=== PATIENT | male | born 1930 | race Caucasian/White ===

== ENCOUNTER 2016-10-12 19:14 | Emergency (ER) | payer MEDICARE ==
[~2016-10-12] VITALS: Ht 180.3 cm; Wt 73.5 kg
[~2016-10-12 19:14] MED LIST: ASCO-340 PO; BUPR100T5 PO; CALC500T3 PO; CARV3.12 PO; CHOL10002 PO; CLOP75TA2 PO; DULO60CA45 PO; MULT-59 PO; OMEG1CAP55 PO; OMEP40CA PO; OXYC1TAB72 PO; ROSU10TA PO; TELM40TA2 PO; VITA1CAP PO
[2016-10-12 21:29] VITALS: BP 148/75
== END 2016-10-12 21:31 | disposition home or self-care (01) ==
LOC: ER 19:16
DX: S01.81XA Laceration without foreign body of other part of head, initial encounter (principal); S86.912A Strain of unspecified muscle(s) and tendon(s) at lower leg level, left leg, initial encounter; S09.90XA Unspecified injury of head, initial encounter; S40.212A Abrasion of left shoulder, initial encounter; Z79.02 Long term (current) use of antithrombotics/antiplatelets; I10 Essential (primary) hypertension; I25.2 Old myocardial infarction; I50.9 Heart failure, unspecified; J44.9 Chronic obstructive pulmonary disease, unspecified; K21.9 Gastro-esophageal reflux disease without esophagitis; C44.90 Unspecified malignant neoplasm of skin, unspecified; Z98.890 Other specified postprocedural states; W10.9XXA Fall (on) (from) unspecified stairs and steps, initial encounter; Y93.89 Activity, other specified; Y92.252 Music hall as the place of occurrence of the external cause; Y99.8 Other external cause status
CPT/HCPCS: 12011; 70450; 73590; 99284; A4606; Z7610

== ENCOUNTER 2017-04-07 14:38 | Outpatient (CLI) | payer MEDICARE ==
[2017-04-07 16:40] LABS: ALANINE AMINOTRANSFERASE 19 U/L (12-78); ALBUMIN 3.3 g/dL (3.4-5.0); ALKALINE PHOSPHATASE 60 U/L (46-116); ASPARTATE AMINOTRANSFERASE 13 U/L (15-37); BILIRUBIN,TOTAL 0.7 mg/dL (0.2-1.0); CALCIUM, SERUM 8.3 mg/dL (8.5-10.1); CARBON DIOXIDE 29 mmol/L (21-32); CHLORIDE 108 mmol/L (98-107); CREATININE 1.9 mg/dL (0.6-1.3); GLUCOSE 101 mg/dL (74-106); POTASSIUM 4.8 mmol/L (3.5-5.1); SODIUM SERUM 144 mmol/L (136-145); TOTAL PROTEIN, SERUM 6.6 g/dL (6.4-8.2); UREA NITROGEN, BLOOD 21 mg/dL (7-18)
== END 2017-04-07 23:59 | disposition home or self-care (01) ==
LOC: LAB 14:38
PROVIDERS: ATTEND Internal Medicine Interventional Cardiology
DX: I25.10 Atherosclerotic heart disease of native coronary artery without angina pectoris (principal)
CPT/HCPCS: 36415; 80053-TC

== ENCOUNTER 2017-04-21 10:24 | Outpatient (CLI) | payer MEDICARE ==
[2017-04-21 11:35] LABS: CALCIUM, SERUM 8.6 mg/dL (8.5-10.1); CARBON DIOXIDE 31 mmol/L (21-32); CHLORIDE 104 mmol/L (98-107); GLUCOSE 102 mg/dL (74-106); POTASSIUM 4.6 mmol/L (3.5-5.1); SODIUM SERUM 138 mmol/L (136-145); UREA NITROGEN, BLOOD 22 mg/dL (7-18)
== END 2017-04-21 23:59 | disposition home or self-care (01) ==
LOC: CARD 10:24
PROVIDERS: ATTEND Internal Medicine Interventional Cardiology
DX: I25.10 Atherosclerotic heart disease of native coronary artery without angina pectoris (principal); J98.4 Other disorders of lung; R91.1 Solitary pulmonary nodule; I50.9 Heart failure, unspecified
CPT/HCPCS: 36415; 75574; 80048; J3490 ×2; J7040; J7050; Q9967

== ENCOUNTER 2017-10-16 10:04 | Outpatient (CLI) | payer MEDICARE ==
[~2017-10-16 10:04] MED LIST changes: +CLOP75TA15 PO; -CLOP75TA2 PO; +OXYC-121 PO; -OXYC1TAB72 PO
== END 2017-10-16 23:59 | disposition home or self-care (01) ==
LOC: CT 10:04
DX: R91.1 Solitary pulmonary nodule (principal); J43.9 Emphysema, unspecified
CPT/HCPCS: 71250-TC

== ENCOUNTER 2017-10-21 13:04 | Emergency (ER) | payer MEDICARE ==
[~2017-10-21] VITALS: Ht 180.3 cm; Wt 70.3 kg
--- NOTE | 2017-10-21 13:10 | NUR ---
FROM DR AVALOS'S OFFICE: DEHYDRATION, LOW BP, DIZZINESS. RR IS EVEN AND UNLABORED WITH NAD NOTED. PLACED ON THE MONITOR. SKIN IS WARM AND DRY. DR HINDS AT BS FOR EVAL.
[2017-10-21 13:36] LABS: BASOPHILS % (AUTO) 0.6 % (0.0-2.0); EOSINOPHILS # (AUTO) 0.2 /CMM (0.0-0.7); EOSINOPHILS % (AUTO) 3.1 % (0.0-6.0); HEMATOCRIT 38 % (39-51); HEMOGLOBIN 13.4 g/dL (13.5-17.5); LYMPHOCYTES # (AUTO) 0.8 /CMM (0.8-4.8); MEAN CORPUSCULAR HEMOGLOBIN 31 PG (26.0-33.0); MEAN CORPUSCULAR HGB CONC 35 g/dl (31.0-36.0); MEAN CORPUSCULAR VOLUME 88 fL (80-96); MONOCYTES # (AUTO) 0.4 /CMM (0.1-1.30); MONOCYTES % (AUTO) 6.6 % (2.0-12.0); NEUTROPHILS # (AUTO) 4.5 /CMM (1.8-8.9); NEUTROPHILS % (AUTO) 76.7 % (43.0-81.0); PLATELET COUNT (AUTO) 247 /CMM (150-450); RDW COEFFICIENT OF VARIATION 13.3 (11.5-15.0); RED BLOOD CELL COUNT(AUTO) 4.33 MIL/uL (4.5-6.0); WHITE BLOOD COUNT (AUTO) 5.9 K/uL (4.3-11.0)
[2017-10-21 13:44] LABS: CALCIUM, SERUM 8.5 mg/dL (8.5-10.1); CARBON DIOXIDE 28 mmol/L (21-32); CHLORIDE 103 mmol/L (98-107); CREATININE 2.1 mg/dL (0.6-1.3); GLUCOSE 98 mg/dL (74-106); POTASSIUM 4.2 mmol/L (3.5-5.1); SODIUM SERUM 134 mmol/L (136-145); UREA NITROGEN, BLOOD 27 mg/dL (7-18)
[2017-10-21 13:49] LABS: ALANINE AMINOTRANSFERASE 19 U/L (12-78); ALBUMIN 3.2 g/dL (3.4-5.0); ALKALINE PHOSPHATASE 50 U/L (46-116); ASPARTATE AMINOTRANSFERASE 15 U/L (15-37); BILIRUBIN,DIRECT 0.2 mg/dL (0.0-0.2); BILIRUBIN,TOTAL 0.7 mg/dL (0.2-1.0); TOTAL PROTEIN, SERUM 6.5 g/dL (6.4-8.2)
--- NOTE | 2017-10-21 13:50 | NUR ---
URINE OBTAINED SENT TO THE LAB.
[2017-10-21 13:52] LABS: TROPONIN I < 0.017 ng/mL (0.00-0.056)
[2017-10-21] MEDS ORDERED: IV NS 0.9% 1,000 ML IV ONE (14:00)
[2017-10-21 14:01] LABS: APPEARANCE,URINE Clear (CLEAR); BILIRUBIN,URINE Negative (NEGATIVE); BLOOD, URINE Negative Ery/uL (NEGATIVE); COLOR,URINE Yellow (YELLOW); KETONES,URINE Negative (NEGATIVE); LEUKOCYTE ESTERASE ,URINE Negative (NEGATIVE); NITRITE, URINE Negative (NEGATIVE); PROTEIN,URINE Negative (NEGATIVE); UGLUCOSE Negative (NEGATIVE); UROBILINOGEN,URINE 0.2 EU/dL (0.2)
--- NOTE | 2017-10-21 15:55 | NUR ---
IV removed. Catheter intact and site benign. Pressure and 4x4 applied to site. No bleeding noted.Patient discharged to home in stable condition. Written and verbal after care instructions given. Patient verbalizes understanding of instruction.
[2017-10-21 15:59] VITALS: BP 173/79
== END 2017-10-21 16:01 | disposition home or self-care (01) ==
LOC: ER 13:09
DX: R42 Dizziness and giddiness (principal); E86.0 Dehydration; I13.0 Hypertensive heart and chronic kidney disease with heart failure and stage 1 through stage 4 chronic kidney disease, or unspecified chronic kidney disease; I25.2 Old myocardial infarction; I50.9 Heart failure, unspecified; J44.9 Chronic obstructive pulmonary disease, unspecified; K21.9 Gastro-esophageal reflux disease without esophagitis; N18.9 Chronic kidney disease, unspecified; Z98.890 Other specified postprocedural states; Z79.02 Long term (current) use of antithrombotics/antiplatelets; Z85.820 Personal history of malignant melanoma of skin; G89.29 Other chronic pain
CPT/HCPCS: 36415; 70450-TC; 80048-TC; 80076-TC; 81000-TC; 84484-TC; 85025-TC; A4606; J7030; Z7610

== ENCOUNTER 2018-04-06 15:55 | Inpatient (IN) | payer MEDICARE ==
[~2018-04-06] VITALS: Ht 180.3 cm; Wt 68.5 kg
--- NOTE | 2018-04-06 16:10 | NUR ---
AAOX3, CAME TO ER SENT BY PMD FOR FEELING SOB X 4 DAYS, NO APPETITE, FEELING WEAK TODAY. RR IS EVEN AND UNLABORED WITH NAD NOTED. SKIN IS WARM AND DRY. PLACED ON THE MONITOR. WILL CONTINUOUSLY MONITOR THE PATIENT. AWAITING MD FOR EVAL.
[2018-04-06] MEDS ORDERED: ALBUTEROL FS 2.5 MG/3 ML VIAL.NEB ONE (17:24)
[2018-04-06] MEDS ORDERED: IPRATROPIUM NEB FS 0.5 MG/2.5 ML AMPUL.NEB ONE (17:24)
[2018-04-06] MEDS ORDERED: IBUPROFEN 600 MG TABLET PO ONE ×2 (17:25→17:30)
[2018-04-06] MEDS ORDERED: methylPREDNISolone SOD SUCC 125 MG/2ML VIAL ONE (17:25)
[2018-04-06] MEDS ORDERED: ALBUTEROL FS 2.5 MG/3 ML VIAL.NEB CONTNEB ONE (17:30)
[2018-04-06] MEDS ORDERED: IV NS 0.9% 1,000 ML BAG IV ONE ×2 (17:30→19:30)
[2018-04-06] MEDS ORDERED: methylPREDNISolone SOD SUCC 125 MG/2ML VIAL IV ONE (17:30)
[2018-04-06] MEDS ORDERED: CEFTRIAXONE 1GM BAG (ER ONLY) 50 ML IV ONE (17:30)
[2018-04-06] MEDS ORDERED: IPRATROPIUM NEB FS 0.5 MG/2.5 ML AMPUL.NEB NEB ONE (17:30)
[2018-04-06 17:32] LABS: BASOPHILS % (AUTO) 0.1 % (0.0-2.0); HEMATOCRIT 43 % (39-51); LYMPHOCYTES # (AUTO) 0.8 /CMM (0.8-4.8); MONOCYTES # (AUTO) 0.8 /CMM (0.1-1.30)
[2018-04-06 17:35] LABS: EOSINOPHILS % (AUTO) 2.2 % (0.0-6.0); HEMOGLOBIN 14.2 g/dL (13.5-17.5); MEAN CORPUSCULAR HEMOGLOBIN 30 PG (26.0-33.0); MEAN CORPUSCULAR HGB CONC 33 g/dl (31.0-36.0); MEAN CORPUSCULAR VOLUME 90 fL (80-96); MONOCYTES % (AUTO) 8.9 % (2.0-12.0); NEUTROPHILS # (AUTO) 6.9 /CMM (1.8-8.9); NEUTROPHILS % (AUTO) 79.8 % (43.0-81.0); PLATELET COUNT (AUTO) 288 /CMM (150-450); RDW COEFFICIENT OF VARIATION 13.1 (11.5-15.0); RED BLOOD CELL COUNT(AUTO) 4.76 MIL/uL (4.5-6.0); WHITE BLOOD COUNT (AUTO) 8.7 K/uL (4.3-11.0)
[2018-04-06 17:45] LABS: CALCIUM, SERUM 8.6 mg/dL (8.5-10.1); CARBON DIOXIDE 28 mmol/L (21-32); CHLORIDE 103 mmol/L (98-107); GLUCOSE 113 mg/dL (74-106); POTASSIUM 3.7 mmol/L (3.5-5.1); SODIUM SERUM 136 mmol/L (136-145); UREA NITROGEN, BLOOD 20 mg/dL (7-18)
[2018-04-06 17:51] LABS: INR 0.96 (0.85-1.15); TROPONIN I < 0.017 ng/mL (0.00-0.056)
[2018-04-06 17:55] LABS: ALANINE AMINOTRANSFERASE 17 U/L (12-78); ALBUMIN 3.4 g/dL (3.4-5.0); ALKALINE PHOSPHATASE 71 U/L (46-116); ASPARTATE AMINOTRANSFERASE 12 U/L (15-37); BILIRUBIN,DIRECT 0.1 mg/dL (0.0-0.2); BILIRUBIN,TOTAL 0.6 mg/dL (0.2-1.0); TOTAL PROTEIN, SERUM 7.1 g/dL (6.4-8.2)
--- NOTE | 2018-04-06 19:00 | NUR ---
REPORT GIVEN TO MARK NUNEZ FOR DIANNA.
--- NOTE | 2018-04-06 19:26 | NUR ---
PAGED EPIC FOR PANEL
[2018-04-06] MEDS ORDERED: AZITHROMYCIN 500 MG in IV D5W 250 ML IV ONE (19:30)
[2018-04-06] MEDS ORDERED: DULO20CA PO (19:33)
[2018-04-06] MEDS ORDERED: SIMV40TA5 PO (19:33)
[2018-04-06] MEDS ORDERED: LEVO25TA9 PO (19:33)
[2018-04-06] MEDS ORDERED: OXYC-128 PO (19:33)
[2018-04-06] MEDS ORDERED: BUPR300T52 PO (19:33)
[2018-04-06] MEDS ORDERED: DONE5TAB34 PO (19:33)
[2018-04-06] MEDS ORDERED: LEVO137T24 PO (20:10)
[2018-04-06] MEDS ORDERED: MAGNESIUM HYDROXIDE 30 ML UDC PO PRN (20:30)
[2018-04-06] MEDS ORDERED: ACETAMINOPHEN 325 MG TABLET PO PRN (20:30)
[2018-04-06] MEDS ORDERED: Z GUARD REMEDY 2 OZ OINT TP PRN (20:30)
[2018-04-06] MEDS ORDERED: ONDANSETRON HCL/PF 4 MG/2 ML VIAL IVP PRN (20:30)
--- NOTE | 2018-04-06 20:55 | NUR ---
RN OPENING NOTES: RECEIVED PT FROM ED WITH 2LS OF NS BEING INFUSED. AT BEDSIDE. PT ON ROOM AIR AND TOLERATING WELL. AWAITING FOR ADMITTING ORDERS. PT HAS IV ON R AC #18G AND IS PATENT AND INTACT. CALL LIGHT WITHIN PT'S REACH. BED KEPT IN LOW, LOCKED POSITION, AND SIDE RAILS X 2UP. WILL CONTINUE TO MONITOR PT.
[2018-04-06 21:00] VITALS: BP 147/81
--- NOTE | 2018-04-06 21:15 | NUR ---
RN NOTES: SPOKE WITH DR. DIALLO. GOT ORDER FOR CARDIAC DIET.
--- NOTE | 2018-04-06 21:25 | NUR ---
RN NOTES: PAGED EPIC. AWAITING FOR DIET ORDER.
--- NOTE | 2018-04-06 21:30 | NUR ---
RN NOTES: DR. JAMES AT BEDSIDE.
[2018-04-06] MEDS: SIMVASTATIN 40 MG TABLET PO SCH (22:40)
[2018-04-06] MEDS: IV NS 0.9% 1,000 ML IV PRN (22:52)
[2018-04-06] MEDS: ALBUTEROL FS 2.5 MG/3 ML VIAL.NEB NEB SCH (23:17)
[2018-04-06] MEDS: ACETYLCYSTEINE 20% SOLN 800 MG/4 ML VIAL NEB SCH (23:17)
[2018-04-06] MEDS: IPRATROPIUM NEB FS 0.5 MG/2.5 ML AMPUL.NEB NEB SCH (23:17)
[2018-04-06] MEDS: ZOLPIDEM TARTRATE 5 MG TABLET PO PRN (23:31)
[2018-04-07] VITALS: BP 133/74
[2018-04-07 03:11] LABS: APPEARANCE,URINE CLEAR (CLEAR); BILIRUBIN,URINE NEGATIVE (NEGATIVE); BLOOD, URINE NEGATIVE Ery/uL (NEGATIVE); COLOR,URINE YELLOW (YELLOW); KETONES,URINE NEGATIVE (NEGATIVE); LEUKOCYTE ESTERASE ,URINE NEGATIVE (NEGATIVE); NITRITE, URINE NEGATIVE (NEGATIVE); PROTEIN,URINE NEGATIVE (NEGATIVE); UGLUCOSE NEGATIVE (NEGATIVE); UROBILINOGEN,URINE 0.2 EU/dL (0.2)
[2018-04-07] MEDS: ALBUTEROL FS 2.5 MG/3 ML VIAL.NEB NEB SCH ×6 (03:25→23:12)
[2018-04-07] MEDS: IPRATROPIUM NEB FS 0.5 MG/2.5 ML AMPUL.NEB NEB SCH ×6 (03:25→23:12)
[2018-04-07 04:00] VITALS: BP 118/60
[2018-04-07 06:27] LABS: BASOPHILS % (AUTO) 0.1 % (0.0-2.0); HEMATOCRIT 34 % (39-51); HEMOGLOBIN 11.3 g/dL (13.5-17.5); LYMPHOCYTES # (AUTO) 0.3 /CMM (0.8-4.8); LYMPHOCYTES % (AUTO) 5.8 % (20.0-44.0); MEAN CORPUSCULAR HEMOGLOBIN 30 PG (26.0-33.0); MEAN CORPUSCULAR HGB CONC 33 g/dl (31.0-36.0); MEAN CORPUSCULAR VOLUME 91 fL (80-96); MONOCYTES # (AUTO) 0.1 /CMM (0.1-1.30); NEUTROPHILS # (AUTO) 4.8 /CMM (1.8-8.9); NEUTROPHILS % (AUTO) 93.1 % (43.0-81.0); PLATELET COUNT (AUTO) 197 /CMM (150-450); RDW COEFFICIENT OF VARIATION 13.6 (11.5-15.0); RED BLOOD CELL COUNT(AUTO) 3.72 MIL/uL (4.5-6.0); WHITE BLOOD COUNT (AUTO) 5.2 K/uL (4.3-11.0)
--- NOTE | 2018-04-07 06:43 | NUR ---
FOREST ECONOMIST CLOSING NOTES: ALL NEEDS WERE ATTENDED AND ANTICIPATED FOR. PT ON ROOM AIR AND TOLERATING WELL. PT AWAKE AND AWAITING FOR BREAKFAST AND WATCHING TELEVISION. PT HAS IV ON R AC AND IS BEING INFUSED WITH IV NS AT 60CC/HR. PT ON TELE BOX AND READING SHOWS SR 82 WITH FIRST DEGREE AV BLOCK AND BBB. CALL LIGHT WITHIN PT'S REACH. BED KEPT IN LOW, LOCKED POSITION, AND SIDE RAILS X2 UP. WILL CONTINUE TO MONITOR PT.
[2018-04-07 06:45] LABS: CALCIUM, SERUM 7.4 mg/dL (8.5-10.1); CARBON DIOXIDE 20 mmol/L (21-32); CHLORIDE 106 mmol/L (98-107); CREATININE 1.8 mg/dL (0.6-1.3); GLUCOSE 245 mg/dL (74-106); MAGNESIUM 1.7 mg/dL (1.8-2.4); PHOSPHORUS 2.8 mg/dL (2.5-4.9); POTASSIUM 4.3 mmol/L (3.5-5.1); SODIUM SERUM 137 mmol/L (136-145); UREA NITROGEN, BLOOD 19 mg/dL (7-18)
[2018-04-07 07:14] LABS: CHOLESTEROL 97 mg/dL (<200); HDL CHOLESTEROL 40 mg/dL (40-60); LDL 62 mg/dL (0-99); TRIGLYCERIDES 30 mg/dL (30-150)
[2018-04-07] MEDS: ACETYLCYSTEINE 20% SOLN 800 MG/4 ML VIAL NEB SCH ×3 (07:21→23:12)
[2018-04-07] MEDS ORDERED: LEVOTHYROXINE SODIUM 137 MCG TABLET PO SCH (07:30)
[2018-04-07 08:00] VITALS: BP 136/76
[2018-04-07] MEDS ORDERED: methylPREDNISolone SOD SUCC 125 MG/2ML VIAL IV SCH (09:00)
[2018-04-07] MEDS ORDERED: GUAIFENESIN 300 MG/15 ML UDC PO PRN (09:30)
--- NOTE | 2018-04-07 09:41 | NUR ---
medicated for cough with robitussin.
[2018-04-07] MEDS: methylPREDNISolone SOD SUCC 125 MG/2ML VIAL IV SCH ×3 (10:01→17:59)
[2018-04-07] MEDS: DONEPEZIL 5 MG TABLET PO SCH (10:01)
[2018-04-07] MEDS: CLOPIDOGREL BISULFATE 75 MG TABLET PO SCH (10:01)
[2018-04-07] MEDS: BUPROPION XL 150 MG TAB.ER.24 PO SCH (10:02)
[2018-04-07] MEDS: DULOXETINE HCL 20 MG CAPSULE.DR PO SCH (10:02)
[2018-04-07] MEDS: CARVEDILOL 3.125 MG TABLET PO SCH ×2 (10:03→18:00)
[2018-04-07] MEDS: LEVOTHYROXINE SODIUM 25 MCG TABLET PO SCH (10:06)
[2018-04-07] MEDS: PANTOPRAZOLE 40 MG TABLET.DR PO SCH (10:07)
[2018-04-07] MEDS ORDERED: Magnesium 1GM/D5W 100ML PREMIX 100 ML IV SCH (10:30)
--- NOTE | 2018-04-07 12:00 | NUR ---
mg replacement iv.
[2018-04-07] MEDS: LOSARTAN POTASSIUM 50 MG TABLET PO SCH (12:52)
--- NOTE | 2018-04-07 14:30 | NUR ---
here all day,reviewed med list with her.bottle of pt's bp med taken to pharm.
[2018-04-07 16:00] VITALS: BP 140/76
--- NOTE | 2018-04-07 16:39 | NUR ---
reports sweaty and flushed after last steroid iv med and breathing tx.bgl checked 155.dr. aguilar notified and agreeable to cont. solu-medrol and breathing txs if no rash and vs stable..
--- NOTE | 2018-04-07 17:00 | NUR ---
bp 143/71,hr 68,98.3,16,pox 93%.pt. without c/o pain.
[2018-04-07] MEDS: MAG HYDROX/AL HYDROX/SIMETH 30 ML UDC PO PRN (18:15)
[2018-04-07] MEDS: oxyCODONE/APAP (5/325 MG) 1 UDTAB TABLET PO PRN (18:17)
--- NOTE | 2018-04-07 18:17 | NUR ---
medicated with maalox for stomach ache and percocette for foot pain.
--- NOTE | 2018-04-07 18:30 | NUR ---
iv infiltrated and removed.
[2018-04-07 20:00] VITALS: BP 146/80
[2018-04-07] MEDS ORDERED: AZITHROMYCIN 250 MG TABLET PO ONE (20:30)
[2018-04-07] MEDS: SIMVASTATIN 40 MG TABLET PO SCH (21:49)
[2018-04-08] VITALS: BP 179/97
--- NOTE | 2018-04-08 00:59 | NUR ---
ETHYL BLENDER NOTES BP 195/95. CALLED DR DIALLO. MADE AWARE RE PT'S CONDITION. PT ALSO REQUESTING FOR ARTIFICIAL TEARS FOR DRY EYES. WITH NEW ORDERS MADE. ORDERS NOTED AND CARRIED OUT. WILL CONTINUE TO MONITOR.
[2018-04-08] MEDS ORDERED: hydrALAZINE HCL 25 MG TABLET PO ONE (01:00)
[2018-04-08] MEDS ORDERED: POLYVINYL ALCOHOL 15 ML BOTTLE EACHEYE PRN (01:00)
[2018-04-08] MEDS: HYDROCODONE/APAP 5/325MG 1 EACH TABLET PO PRN ×2 (01:10→20:35)
[2018-04-08] MEDS: ZOLPIDEM TARTRATE 5 MG TABLET PO PRN (01:17)
[2018-04-08 02:05] VITALS: BP 138/64
[2018-04-08] MEDS: ALBUTEROL FS 2.5 MG/3 ML VIAL.NEB NEB SCH ×6 (02:57→23:30)
[2018-04-08] MEDS: IPRATROPIUM NEB FS 0.5 MG/2.5 ML AMPUL.NEB NEB SCH ×6 (02:57→23:30)
[2018-04-08 04:00] VITALS: BP 132/72
[2018-04-08] MEDS: MAG HYDROX/AL HYDROX/SIMETH 30 ML UDC PO PRN (05:19)
--- NOTE | 2018-04-08 06:22 | NUR ---
BOGGER OPERATOR NOTES AWAKE & RESPONSIVE. NOT IN ANY DISTRESS. NO SOB NOTED. DENIES ANY PAIN OR DISCOMFORT AT THIS TIME. ON TELE SR @ 68. MONITORED ACCORDINGLY. CALL LIGHT WITHIN REACH. BED IN LOWEST POSITION. SR UP X 2 FOR SAFETY. WILL ENDORSE TO NEXT SHIFT.
[2018-04-08 06:45] LABS: CARBON DIOXIDE 22 mmol/L (21-32); CHLORIDE 106 mmol/L (98-107); CREATININE 1.7 mg/dL (0.6-1.3); GLUCOSE 119 mg/dL (74-106); MAGNESIUM 1.9 mg/dL (1.8-2.4); PHOSPHORUS 2.8 mg/dL (2.5-4.9); POTASSIUM 4.7 mmol/L (3.5-5.1); SODIUM SERUM 137 mmol/L (136-145); UREA NITROGEN, BLOOD 29 mg/dL (7-18)
--- NOTE | 2018-04-08 07:25 | NUR ---
WATER JET OPERATOR OPENING NOTES RECEIVED PATIENT IN NO APPARENT DISTRESS. BEDSIDE RAILS ARE UPX2. BED IS LOCKED AND LOWERED. CALL LIGHT IS WITHIN REACH. PATIENT DOES NOT HAVE IV LINE. WILL START NEW IV. WILL CONTINUE TO MONITOR PATIENT.
[2018-04-08] MEDS: LEVOTHYROXINE SODIUM 25 MCG TABLET PO SCH (07:42)
[2018-04-08] MEDS: PANTOPRAZOLE 40 MG TABLET.DR PO SCH (07:42)
[2018-04-08] MEDS: ACETYLCYSTEINE 20% SOLN 800 MG/4 ML VIAL NEB SCH ×3 (07:55→23:30)
[2018-04-08 08:00] VITALS: BP 152/81
[2018-04-08 08:15] LABS: HEMATOCRIT 33 % (39-51); HEMOGLOBIN 10.9 g/dL (13.5-17.5); LYMPHOCYTES # (AUTO) 0.6 /CMM (0.8-4.8); LYMPHOCYTES % (AUTO) 4.5 % (20.0-44.0); MEAN CORPUSCULAR HEMOGLOBIN 30 PG (26.0-33.0); MEAN CORPUSCULAR HGB CONC 33 g/dl (31.0-36.0); MEAN CORPUSCULAR VOLUME 91 fL (80-96); MONOCYTES # (AUTO) 0.5 /CMM (0.1-1.30); MONOCYTES % (AUTO) 4.2 % (2.0-12.0); NEUTROPHILS # (AUTO) 11.9 /CMM (1.8-8.9); NEUTROPHILS % (AUTO) 91.3 % (43.0-81.0); PLATELET COUNT (AUTO) 228 /CMM (150-450); RDW COEFFICIENT OF VARIATION 13.8 (11.5-15.0); RED BLOOD CELL COUNT(AUTO) 3.58 MIL/uL (4.5-6.0)
[2018-04-08] MEDS: DULOXETINE HCL 20 MG CAPSULE.DR PO SCH (08:35)
[2018-04-08] MEDS: DONEPEZIL 5 MG TABLET PO SCH (08:36)
[2018-04-08] MEDS: BUPROPION XL 150 MG TAB.ER.24 PO SCH (08:36)
[2018-04-08] MEDS: CARVEDILOL 3.125 MG TABLET PO SCH ×2 (08:36→17:22)
[2018-04-08] MEDS: CLOPIDOGREL BISULFATE 75 MG TABLET PO SCH (08:36)
[2018-04-08] MEDS: LOSARTAN POTASSIUM 50 MG TABLET PO SCH (08:37)
[2018-04-08] MEDS: methylPREDNISolone SOD SUCC 125 MG/2ML VIAL IV SCH ×3 (08:55→17:30)
--- NOTE | 2018-04-08 09:31 | NUR ---
STARTED IV ON LEFT FOREARM GAUGE 22.
[2018-04-08] MEDS: IV NS 0.9% 1,000 ML IV PRN (09:57)
[2018-04-08 16:00] VITALS: BP 154/83
--- NOTE | 2018-04-08 18:20 | NUR ---
MS RN CLOSING NOTES PATIENT IS IN STABLE CONDITION. IN NO APPARENT DISTRESS. BEDSIDE RAILS ARE UPX2. BED IS LOCKED AND LOWERED. CALL LIGHT IS WITHIN REACH. IV LINE IS INTACT AND PATENT. WILL ENDORSE CARE TO SAPPHIRE STYLUS GRINDER NURSE FOR DIANNA.
[2018-04-08 20:00] VITALS: BP 156/85
[2018-04-08] MEDS: SIMVASTATIN 40 MG TABLET PO SCH (22:27)
[2018-04-08] MEDS: oxyCODONE/APAP (5/325 MG) 1 UDTAB TABLET PO PRN (23:11)
[2018-04-09] MEDS: IPRATROPIUM NEB FS 0.5 MG/2.5 ML AMPUL.NEB NEB SCH ×4 (03:49→15:27)
[2018-04-09] MEDS: ALBUTEROL FS 2.5 MG/3 ML VIAL.NEB NEB SCH ×4 (03:49→15:27)
[2018-04-09] MEDS: IV NS 0.9% 1,000 ML IV PRN (04:30)
--- NOTE | 2018-04-09 06:30 | NUR ---
MS RN NOTES AWAKE & RESPONSIVE. NOT IN ANY DISTRESS. NO SOB NOTED. DENIES ANY PAIN OR DISCOMFORT AT THIS TIME. WITH IVF INFUSING WELL. MONITORED ACCORDINGLY. CALL LIGHT WITHIN REACH. BED IN LOWEST POSITION. SR UP X 2 FOR SAFETY. WILL ENDORSE TO NEXT SHIFT.
[2018-04-09] MEDS: ACETYLCYSTEINE 20% SOLN 800 MG/4 ML VIAL NEB SCH ×2 (07:32→15:28)
--- NOTE | 2018-04-09 07:56 | NUR ---
RN OPENING NOTES RECEIVED PT AWAKE ALERT AND VERBALLY RESPONSIVE, DENIES ANY PAIN OR DISCOMFORT AT THIS TIME. IV ACCESS TO LFA PATENT AND INTACT NO REDNESS OR INFILTRATION NOTED. SAFETY MEASURES IN PLACE, CALL LIGHT WITHIN EASY REACH, WILL CONTINUE TO MONITOR
[2018-04-09 08:00] VITALS: BP 175/90
[2018-04-09] MEDS: methylPREDNISolone SOD SUCC 125 MG/2ML VIAL IV SCH ×2 (08:09→12:50)
[2018-04-09] MEDS: DONEPEZIL 5 MG TABLET PO SCH (08:09)
[2018-04-09] MEDS: LOSARTAN POTASSIUM 50 MG TABLET PO SCH (08:09)
[2018-04-09] MEDS: LEVOTHYROXINE SODIUM 25 MCG TABLET PO SCH (08:09)
[2018-04-09] MEDS: BUPROPION XL 150 MG TAB.ER.24 PO SCH (08:09)
[2018-04-09] MEDS: PANTOPRAZOLE 40 MG TABLET.DR PO SCH (08:09)
[2018-04-09] MEDS: CLOPIDOGREL BISULFATE 75 MG TABLET PO SCH (08:09)
[2018-04-09] MEDS: DULOXETINE HCL 20 MG CAPSULE.DR PO SCH (08:09)
[2018-04-09] MEDS: CARVEDILOL 3.125 MG TABLET PO SCH (08:10)
[2018-04-09 09:10] VITALS: BP 162/94
[2018-04-09 10:45] VITALS: BP 161/95
[2018-04-09 12:50] VITALS: BP 130/74
[2018-04-09] MEDS ORDERED: PRED5TAB48 PO (14:12)
[2018-04-09] MEDS ORDERED: PRED20TA PO (14:12)
[2018-04-09] MEDS ORDERED: CARV6.25 PO (14:12)
[2018-04-09] MEDS ORDERED: PRED10TA23 PO (14:12)
[2018-04-09] MEDS ORDERED: FLUT1DIS3 INH (14:18)
--- NOTE | 2018-04-09 16:01 | NUR ---
RN CLOSING/DISCHARGE NOTES PT AWAKE ALERT AND VERBALLY RESPONSIVE, DENIES ANY PAIN OR DISCOMFORT AT THIS TIME, ABLE TO MAKE NEEDS KNOWN. IV ACCESS TO LFA AND ID BAND REMOVED WITH NO ASE NOTED.PATIENT WITH DISCHARGE ORDERS, ALL DISCHARGE INSTRUCTIONS REVIEWED WITH PATIENT AND WITH NOTED VERBAL UNDERSTANDING NOTED. MEDICATIONS RETURNED TO PT, ALL BELONGINGS ACCOUNTED FOR. HOME HEALTH SET UP PER , DISCHARGED IN STABLE CONDITION, ASSISTED TO LOBBY BY RN
[2018-04-09] MEDS ORDERED: CARVEDILOL 6.25 MG TABLET PO SCH (17:00)
== END 2018-04-09 15:49 | disposition home health service (06) | DRG 193 ==
LOC: ER 15:56 → MED 20:25 → TELE 22:06 → MED 04-08 17:21
PROVIDERS: ADMIT Family Medicine; ATTEND Family Medicine
DX: J15.9 Unspecified bacterial pneumonia (principal); N17.0 Acute kidney failure with tubular necrosis; J44.1 Chronic obstructive pulmonary disease with (acute) exacerbation; J44.0 Chronic obstructive pulmonary disease with (acute) lower respiratory infection; K22.5 Diverticulum of esophagus, acquired; I11.0 Hypertensive heart disease with heart failure; I50.9 Heart failure, unspecified; I25.2 Old myocardial infarction; I25.10 Atherosclerotic heart disease of native coronary artery without angina pectoris; K21.9 Gastro-esophageal reflux disease without esophagitis; Z85.820 Personal history of malignant melanoma of skin; Z95.5 Presence of coronary angioplasty implant and graft
CPT/HCPCS: 36415; 71045-TC; 80048-TC; 80061-TC; 80076-TC; 81000-TC; 82962-TC; 83605-TC; 83735-TC; 84100-TC; 84484-TC; 85025-TC; 85730-TC; 87040-TC; 87081-TC; 87086-TC; 92526; 92611-TC; A4606; J0456; J0696; J2930; J3475; J7030; J7040; J7060; Z7610

== ENCOUNTER 2018-09-20 18:52 | Inpatient (IN) | payer MEDICARE ==
[~2018-09-20] VITALS: Ht 177.8 cm; Wt 71.2 kg
[~2018-09-20 18:52] MED LIST changes: -ASCO-340 PO; -BUPR100T5 PO; +BUPR300T52 PO; -CALC500T3 PO; -CARV3.12 PO; +CARV6.25 PO; -CHOL10002 PO; +DONE5TAB34 PO; +DULO20CA PO; -DULO60CA45 PO; +FLUT1DIS3 INH; +LEVO25TA9 PO; -MULT-59 PO; -OMEG1CAP55 PO; -OXYC-121 PO; +OXYC-128 PO; +PRED10TA23 PO; +PRED20TA PO; +PRED5TAB48 PO; -ROSU10TA PO; +SIMV40TA5 PO; -VITA1CAP PO
--- NOTE | 2018-09-20 19:21 | NUR ---
patient presented to the ER c/o sob, on 2lpm via NC, denies any pain at this time. kept comfortable, will continue to monitor accordingly.
[2018-09-20 19:30] LABS: BASOPHILS % (AUTO) 0.1 % (0.0-2.0); HEMATOCRIT 32 % (39-51); HEMOGLOBIN 10.7 g/dL (13.5-17.5); LYMPHOCYTES # (AUTO) 0.7 /CMM (0.8-4.8); LYMPHOCYTES % (AUTO) 6.5 % (20.0-44.0); MEAN CORPUSCULAR HGB CONC 34 g/dl (31.0-36.0); MEAN CORPUSCULAR VOLUME 86 fL (80-96); MONOCYTES # (AUTO) 0.7 /CMM (0.1-1.30); MONOCYTES % (AUTO) 6.5 % (2.0-12.0); NEUTROPHILS % (AUTO) 85.9 % (43.0-81.0); PLATELET COUNT (AUTO) 195 /CMM (150-450); RED BLOOD CELL COUNT(AUTO) 3.66 MIL/uL (4.5-6.0); WHITE BLOOD COUNT (AUTO) 10.5 K/uL (4.3-11.0)
[2018-09-20] MEDS ORDERED: IV NS 0.9% 1,000 ML BAG IV ONE (19:30)
[2018-09-20 19:39] LABS: CALCIUM, SERUM 8.8 mg/dL (8.5-10.1); CARBON DIOXIDE 25 mmol/L (21-32); CHLORIDE 105 mmol/L (98-107); CREATININE 2.5 mg/dL (0.6-1.3); GLUCOSE 104 mg/dL (74-106); POTASSIUM 4.3 mmol/L (3.5-5.1); SODIUM SERUM 138 mmol/L (136-145); UREA NITROGEN, BLOOD 42 mg/dL (7-18)
[2018-09-20 19:45] LABS: ALANINE AMINOTRANSFERASE 14 U/L (12-78); ALBUMIN 2.9 g/dL (3.4-5.0); ALKALINE PHOSPHATASE 60 U/L (46-116); ASPARTATE AMINOTRANSFERASE 12 U/L (15-37); BILIRUBIN,DIRECT 0.3 mg/dL (0.0-0.2); BILIRUBIN,TOTAL 1.1 mg/dL (0.2-1.0); TOTAL PROTEIN, SERUM 6.5 g/dL (6.4-8.2)
--- NOTE | 2018-09-20 19:57 | NUR ---
PMD PAGED DR. GRIFFIN [phone]
--- NOTE | 2018-09-20 20:43 | NUR ---
CALLED FOR REPORT. WAS TOLD TO CALL BACK IN 15.
[2018-09-20] MEDS ORDERED: LEVOFLOXACIN 750 MG /D5W 150ML 150 ML IV ONE ×2 (20:52→21:00)
[2018-09-20] MEDS ORDERED: ACETAMINOPHEN 325 MG TABLET PO PRN (21:00)
[2018-09-20] MEDS ORDERED: HYDROCODONE/APAP 5/325MG 1 EACH TABLET PO PRN (21:00)
[2018-09-20] MEDS ORDERED: HYDROMORPHONE INJ 2 MG/ML DISP.SYRIN IV PRN (21:00)
[2018-09-20] MEDS ORDERED: MAGNESIUM HYDROXIDE 30 ML UDC PO PRN (21:00)
[2018-09-20] MEDS ORDERED: MAG HYDROX/AL HYDROX/SIMETH 30 ML UDC PO PRN (21:00)
[2018-09-20] MEDS ORDERED: ONDANSETRON HCL/PF 4 MG/2 ML VIAL IVP PRN (21:00)
[2018-09-20] MEDS ORDERED: Z GUARD REMEDY 2 OZ OINT TP PRN (21:00)
[2018-09-20] MEDS ORDERED: LOPERAMIDE HCL (2 MG CAP) 2 MG CAPSULE PO PRN (21:00)
--- NOTE | 2018-09-20 21:01 | NUR ---
REPORT GIVEN TO AISLINN FLORES.
--- NOTE | 2018-09-20 21:05 | NUR ---
AISLINN AWARE OF INFUSING ATBX.
--- NOTE | 2018-09-20 21:10 | NUR ---
RN NOTE RECEIVED PATIENT FROM ER, ABLE TO AMBULATE FROM GURNEY TO BED ON HIS OWN, STEADY GAIT, ALERT/ORIENTED X 4, IS BY BEDSIDE, ON 2 L/MIN VIA NASAL CANULA, VITAL SIGNS TAKEN, NO RESPIRATORY DISTRESS NOTED, NO PAIN OR DISCOMFORT NOTED, RECEIVED PATIENT WITH CONTINUOUS ANTIBIOTIC LEVOQUIN, DX: RIGHT LUNG PNEUMONIA/ACUTE ON CHRONIC RENAL FAILURE, LEFT AC 18 GAUGE, IV SITE IS INTACT, NO S/S OF INFECTION/INFILTRATION NOTED, ALL SAFETY MEASURES TAKEN
[2018-09-20] MEDS ORDERED: CEFTRIAXONE 1 G VIAL ONE (21:41)
[2018-09-20] MEDS: CEFTRIAXONE 1 G in IV D5W 50 ML IV SCH (21:51)
[2018-09-20] MEDS: IV NS 0.9% 1,000 ML IV PRN (21:51)
[2018-09-20] MEDS: SIMVASTATIN 40 MG TABLET PO SCH (21:53)
[2018-09-20] MEDS ORDERED: AZITHROMYCIN 500 MG VIAL ONE (22:00)
[2018-09-20] MEDS: AZITHROMYCIN 500 MG in IV D5W 250 ML IV SCH (23:06)
--- NOTE | 2018-09-21 02:52 | NUR ---
RN NOTE PER PATIENT WAS ON GABAPENTIN 300MG THREE TIMES DAILY PO, NOTIFIED ANTHONY DOMINGUEZ, PER BONILLA DOMINGUEZ CONTINUE THE SAME ORDER OF GABAPENTIN 300 MG THREE TIMES DAILY PO
[2018-09-21 04:00] VITALS: BP 111/61
[2018-09-21 06:11] LABS: BASOPHILS % (AUTO) 0.2 % (0.0-2.0); EOSINOPHILS % (AUTO) 1.7 % (0.0-6.0); HEMATOCRIT 27 % (39-51); HEMOGLOBIN 9.3 g/dL (13.5-17.5); LYMPHOCYTES # (AUTO) 0.7 /CMM (0.8-4.8); LYMPHOCYTES % (AUTO) 7.1 % (20.0-44.0); MEAN CORPUSCULAR HGB CONC 35 g/dl (31.0-36.0); MEAN CORPUSCULAR VOLUME 85 fL (80-96); MONOCYTES # (AUTO) 0.7 /CMM (0.1-1.30); MONOCYTES % (AUTO) 7.6 % (2.0-12.0); NEUTROPHILS # (AUTO) 7.9 /CMM (1.8-8.9); NEUTROPHILS % (AUTO) 83.4 % (43.0-81.0); PLATELET COUNT (AUTO) 164 /CMM (150-450); RED BLOOD CELL COUNT(AUTO) 3.16 MIL/uL (4.5-6.0); WHITE BLOOD COUNT (AUTO) 9.4 K/uL (4.3-11.0)
[2018-09-21 06:35] LABS: ALANINE AMINOTRANSFERASE 12 U/L (12-78); ALBUMIN 2.3 g/dL (3.4-5.0); ALKALINE PHOSPHATASE 44 U/L (46-116); ASPARTATE AMINOTRANSFERASE 8 U/L (15-37); BILIRUBIN,TOTAL 0.7 mg/dL (0.2-1.0); CALCIUM, SERUM 7.9 mg/dL (8.5-10.1); CARBON DIOXIDE 25 mmol/L (21-32); CHLORIDE 105 mmol/L (98-107); CREATININE 2.1 mg/dL (0.6-1.3); GLUCOSE 91 mg/dL (74-106); MAGNESIUM 1.9 mg/dL (1.8-2.4); PHOSPHORUS 2.8 mg/dL (2.5-4.9); POTASSIUM 4.2 mmol/L (3.5-5.1); SODIUM SERUM 138 mmol/L (136-145); TOTAL PROTEIN, SERUM 5.2 g/dL (6.4-8.2); UREA NITROGEN, BLOOD 33 mg/dL (7-18)
[2018-09-21 06:46] LABS: CHOLESTEROL 85 mg/dL (<200); HDL CHOLESTEROL 35 mg/dL (40-60); LDL 43 mg/dL (0-99); TRIGLYCERIDES 75 mg/dL (30-150)
--- NOTE | 2018-09-21 06:49 | NUR ---
RN NOTE PATIENT RESTED WELL AT NIGHT, NO RESPIRATORY DISTRESS NOTED, STABLE, ALL SAFETY MEASURES TAKEN, WILL PROVIDE BEDSIDE REPORT TO AM NURSE
--- NOTE | 2018-09-21 07:00 | NUR ---
MS RN NOTES PT RECEIVED IN BED, A/OX4. PT ON 2L NC O2 SAT 96%. ASSISTED PT TO BR. PT UNSTEADY UPON RISING OFF BED, REQUIRES STANDBY ASSIST. LAC #18 C/D/P/I. NO RESP DISTRESS NOTED. DIMINISHED LUNG SOUNDS NOTED. BED IN LOCKED/LOWEST POSITION. CALL LIGHT IN REACH. WILL CONT TO MONITOR.
[2018-09-21 08:00] VITALS: BP 133/65
[2018-09-21] MEDS ORDERED: FLUTICASONE/SALMETEROL DISKUS IH SCH (09:00)
[2018-09-21] MEDS: BUPROPION XL 150 MG TAB.ER.24 PO SCH (09:31)
[2018-09-21] MEDS: PANTOPRAZOLE 40 MG VIAL IV SCH (09:31)
[2018-09-21] MEDS: FLUTICASONE/VILANTEROL 1 EACH BLST.W.DEV IH SCH (09:31)
[2018-09-21] MEDS: DULOXETINE HCL 20 MG CAPSULE.DR PO SCH (09:35)
[2018-09-21] MEDS: DONEPEZIL 5 MG TABLET PO SCH (09:35)
[2018-09-21] MEDS: CLOPIDOGREL BISULFATE 75 MG TABLET PO SCH (09:35)
[2018-09-21] MEDS: CARVEDILOL 6.25 MG TABLET PO SCH ×2 (09:35→16:29)
[2018-09-21] MEDS: LEVOTHYROXINE SODIUM 25 MCG TABLET PO SCH (09:36)
[2018-09-21] MEDS: LOSARTAN POTASSIUM 50 MG TABLET PO SCH (09:36)
[2018-09-21] MEDS: GABAPENTIN 300 MG CAPSULE PO SCH ×2 (09:49→16:28)
--- NOTE | 2018-09-21 14:00 | NUR ---
MS RN NOTES PT'S BROUGHT IN COPY OF VIDEO SWALLOW EVAL DONE 01/2018. DR DIALLO NOTIFIED.
[2018-09-21 16:00] VITALS: BP 106/59
--- NOTE | 2018-09-21 16:27 | NUR ---
MS RN NOTES SOFT DIET PER PT REQUEST.
[2018-09-21] MEDS: IV NS 0.9% 1,000 ML IV PRN (16:32)
--- NOTE | 2018-09-21 19:00 | NUR ---
MS RN RECEIVED PT ON BED, A/O X 3, NOT IN ANY FORM OF DISTRESS, RESPIRATIONS EVEN AND UNLABORED, NO SOB NOTED, STABLE CONDITION. SAFETY MEASURES IN PLACE. WILL CONTINUE TO MONITOR.
--- NOTE | 2018-09-21 19:02 | NUR ---
MS RN NOTES ENDORSED PT TO PM SHIFT FOR DIANNA. PT RESTING IN BED WITH AT BEDSIDE. PT WAS UNABLE TO EAT DUE TO DIFFICULTY SWALLOWING. MD AWARE. PT IS TOLERATING ROOM AIR WELL. IV FLUIDS INFUSING. ALL NEEDS ATTENDED TO.
--- NOTE | 2018-09-21 19:30 | NUR ---
MS RN NOTES RECEIVED PT ON BED. A/O X 4. WITH FAMILY ON BEDSIDE. ON ROOM AIR NO RESPIRATORY DISTRESS NOTED. IV ACCESS LAC G18 NS @ 75CC/HR PATENT AND INTACT. HEAD OF BED ELEVATED. SIDE RAILS UP. CALL LIGHT WITHIN REACH. BED ALARM ON. WILL CONTINUE TO MONITOR PT CLOSELY.
--- NOTE | 2018-09-21 19:35 | NUR ---
ENDORSE PT TO NEXT NIGHT RN PT STABLE
[2018-09-21 20:00] VITALS: BP 128/58
[2018-09-21] MEDS: CEFTRIAXONE 1 G in IV D5W 50 ML IV SCH (20:37)
[2018-09-21] MEDS: SIMVASTATIN 40 MG TABLET PO SCH (21:28)
[2018-09-21] MEDS: AZITHROMYCIN 500 MG in IV D5W 250 ML IV SCH (21:29)
--- NOTE | 2018-09-21 21:30 | NUR ---
MS RN NOTES PT COMPLAINING OF CHEST PAIN 11/17. PAGED HUMAN RESOURCES SAFETY MANAGER. NO NEW ORDERS FOR NOW. GIVEN NORCO 5 FOR PAIN. V/S BLOOD PRESSURE 148/78 HR OF 65 ON ROOM AIR 93%. PT PUT ON NASAL CANNULA 2LPM FOR O2 SUPPORT. WILL MONITOR PT CLOSELY.
--- NOTE | 2018-09-21 22:43 | NUR ---
MS RN NOTES ORDERED EKG, TROPONIN AND CXR. PT PUT ON MONITOR SR 65. WILL MONITOR PT CLOSELY.
--- NOTE | 2018-09-21 23:30 | NUR ---
ROAD MONKEY NOTES REPORTED TO SIZE STAMPER EKG RESULTED NSR WITH RIGHT BBB, CXR RESULTED, AND TROPONIN LEVELS. PER SERVICE SUPERINTENDENT, TROPONIN Q6H X2 AND CARDIO CONSULT IN AM AND PUT PT IN TELE STATUS. PT SLEEPING COMFORTABLE WITH NO COMPLAINTS OF PAIN. WILL MONITOR PT CLOSELY.
[2018-09-21] MEDS: ZOLPIDEM TARTRATE 5 MG TABLET PO PRN (23:54)
[2018-09-22 04:00] VITALS: BP 117/74
[2018-09-22] MEDS: IV NS 0.9% 1,000 ML IV PRN (04:41)
[2018-09-22 06:22] LABS: BASOPHILS % (AUTO) 0.1 % (0.0-2.0); EOSINOPHILS % (AUTO) 2.6 % (0.0-6.0); HEMATOCRIT 30 % (39-51); HEMOGLOBIN 10.3 g/dL (13.5-17.5); LYMPHOCYTES # (AUTO) 0.8 /CMM (0.8-4.8); LYMPHOCYTES % (AUTO) 8.6 % (20.0-44.0); MEAN CORPUSCULAR HGB CONC 34 g/dl (31.0-36.0); MEAN CORPUSCULAR VOLUME 86 fL (80-96); MONOCYTES # (AUTO) 0.8 /CMM (0.1-1.30); MONOCYTES % (AUTO) 8.2 % (2.0-12.0); NEUTROPHILS # (AUTO) 7.6 /CMM (1.8-8.9); NEUTROPHILS % (AUTO) 80.5 % (43.0-81.0); PLATELET COUNT (AUTO) 179 /CMM (150-450); RED BLOOD CELL COUNT(AUTO) 3.53 MIL/uL (4.5-6.0); WHITE BLOOD COUNT (AUTO) 9.5 K/uL (4.3-11.0)
--- NOTE | 2018-09-22 06:33 | NUR ---
EDUCATIONAL GUIDANCE COUNSELOR NOTES NO ACUTE CHANGES NOTED DURING THE SHIFT. PROVIDED COMFORT AND SAFETY. WILL ENDORSE TO THE AM NURSE FOR CONTINUITY OF CARE.
[2018-09-22 06:36] LABS: CALCIUM, SERUM 8.4 mg/dL (8.5-10.1); CARBON DIOXIDE 25 mmol/L (21-32); CHLORIDE 108 mmol/L (98-107); GLUCOSE 94 mg/dL (74-106); POTASSIUM 4.3 mmol/L (3.5-5.1); SODIUM SERUM 140 mmol/L (136-145); UREA NITROGEN, BLOOD 27 mg/dL (7-18)
[2018-09-22 08:00] VITALS: BP 111/71
--- NOTE | 2018-09-22 08:00 | NUR ---
TD RN AM SHIFT NOTE PATIENT ALERT X4. IN BED, NSR ON MONITOR. LEFT AC FLUSING WELL, NO PAIN NOTED. SLEPT WELL THROGUH OUT PM. BED IN LOW POSITION SAFETY MEASURES IN PLACE. CONTINUE TO MONITOR.
[2018-09-22] MEDS: GABAPENTIN 300 MG CAPSULE PO SCH ×2 (08:13→16:37)
[2018-09-22] MEDS: FLUTICASONE/VILANTEROL 1 EACH BLST.W.DEV IH SCH (08:13)
[2018-09-22] MEDS: BUPROPION XL 150 MG TAB.ER.24 PO SCH (08:13)
[2018-09-22] MEDS: LOSARTAN POTASSIUM 50 MG TABLET PO SCH (08:14)
[2018-09-22] MEDS: CLOPIDOGREL BISULFATE 75 MG TABLET PO SCH (08:15)
[2018-09-22] MEDS: CARVEDILOL 6.25 MG TABLET PO SCH ×2 (08:15→16:37)
[2018-09-22] MEDS: PANTOPRAZOLE 40 MG VIAL IV SCH (08:15)
[2018-09-22] MEDS: DONEPEZIL 5 MG TABLET PO SCH (08:15)
[2018-09-22] MEDS: LEVOTHYROXINE SODIUM 25 MCG TABLET PO SCH (08:15)
[2018-09-22] MEDS: DULOXETINE HCL 20 MG CAPSULE.DR PO SCH (08:15)
--- NOTE | 2018-09-22 11:36 | NUR ---
RN NOTE MD CAME BY TO SEE PATIENT, MONITOR KIDNEY FUNCTION, SWALLOW EVAL DONE AND DIETARY CHANGED TO LOW FIBER REGULAR DIET. D/C OXYGEN PER HAYES ORDERS.
[2018-09-22 12:00] VITALS: BP 117/61
--- NOTE | 2018-09-22 13:00 | NUR ---
RN NOTE PATIENT ALERT AND AWAKE. AT BEDSIDE, PATIENT STATES HE IS NOT HUNGRY AT THIS TIME. HELPED ENCOURAGE HIM TO EAT WITH . PATIENT STATES HE NO LONGER DIFFICULTY SWALLOWING. NURSE MONITORED HIM EATING LUNCH, WAS ABLE TO SWALLOW. DR AWARE AND DOES NOT WANT TO DO A GI CONSULT AT THIS TIME.
--- NOTE | 2018-09-22 13:04 | NUR ---
PATIENT WANTED PUREED FOOD ,MD MADE AWARE AND ADJUSTED DIET TO PUREED.
--- NOTE | 2018-09-22 15:07 | NUR ---
RN NOTE INCENTIVE SPIROMETER TO BE USED 5X AN HOUR WHILE AWAKE AND NEEDED TO PREVENT ATELECTASIS. PER MD ORDER
[2018-09-22 16:00] VITALS: BP_SYST 113; BP_SYST 163; BP_DIAS 42; BP_DIAS 80
--- NOTE | 2018-09-22 19:14 | NUR ---
RN CLOSING NOTE PATIENT ALERT AND ORIENTED, FAMILY AT BEDSIDE. PATIENT BED IN LOW POSITION. IV CHANGED TO RIGHT FOREARM 22 GAUGE. PATIENT KEPT CLEAN AND DRY. PT EVAL DONE TODAY, AMBULATED WITH ASSIST. CONTINUE TO MONITOR PATIENT.
[2018-09-22] MEDS: ENSURE ENLIVE 237 ML LIQUID (VANILLA) PO SCH (19:20)
--- NOTE | 2018-09-22 19:30 | NUR ---
TOWEL HEMMER: RECEIVED PT A/O X 4 WT FAMILY AT BEDSIDE. ON 2L 02 VIA NC WT NO ACUTE DISTRESS. NO C/O PAIN. SR ON TELE MONITOR. RT. FA IV SITE PATENT AND INTACT RUNNING NS AT 75ML/HR. ABLE TO VOID ON URINAL. ENCOURAGED BY TO DRINK NOURISHMENT AT BEDSIDE. NO S/S OF ASPIRATION. HOB AT 45 DEGREES. SAFETY PRECAUTION NOTED. WILL CONTINUE TO MONITOR.
[2018-09-22 20:00] VITALS: BP 121/75
[2018-09-22] MEDS: SIMVASTATIN 40 MG TABLET PO SCH (21:04)
[2018-09-22] MEDS: CEFTRIAXONE 1 G in IV D5W 50 ML IV SCH (21:04)
[2018-09-22] MEDS: AZITHROMYCIN 500 MG in IV D5W 250 ML IV SCH (21:47)
[2018-09-22] MEDS: ZOLPIDEM TARTRATE 5 MG TABLET PO PRN (23:39)
[2018-09-23] VITALS: BP 128/70
[2018-09-23] MEDS: IV NS 0.9% 1,000 ML IV PRN ×2 (03:55→23:44)
[2018-09-23 04:00] VITALS: BP 147/77
[2018-09-23 06:14] LABS: BASOPHILS % (AUTO) 0.4 % (0.0-2.0); EOSINOPHILS % (AUTO) 3.3 % (0.0-6.0); HEMATOCRIT 28 % (39-51); HEMOGLOBIN 9.6 g/dL (13.5-17.5); LYMPHOCYTES # (AUTO) 0.9 /CMM (0.8-4.8); LYMPHOCYTES % (AUTO) 9.3 % (20.0-44.0); MEAN CORPUSCULAR HGB CONC 34 g/dl (31.0-36.0); MEAN CORPUSCULAR VOLUME 86 fL (80-96); MONOCYTES # (AUTO) 0.9 /CMM (0.1-1.30); PLATELET COUNT (AUTO) 177 /CMM (150-450); RED BLOOD CELL COUNT(AUTO) 3.28 MIL/uL (4.5-6.0); WHITE BLOOD COUNT (AUTO) 9.1 K/uL (4.3-11.0)
--- NOTE | 2018-09-23 06:14 | NUR ---
CLASSIFIED AD CLERK: NO SIGNIFICANT DIANNA DURING THE SHIFT. NO ACUTE DISTRESS, NO C/O PAIN. VS WITHIN PT's BASELINE. SAFETY PRECAUTION NOTED AT ALL TIMES.
[2018-09-23 06:22] LABS: CALCIUM, SERUM 8.1 mg/dL (8.5-10.1); CARBON DIOXIDE 24 mmol/L (21-32); CHLORIDE 108 mmol/L (98-107); CREATININE 1.7 mg/dL (0.6-1.3); GLUCOSE 106 mg/dL (74-106); POTASSIUM 4.1 mmol/L (3.5-5.1); SODIUM SERUM 140 mmol/L (136-145); UREA NITROGEN, BLOOD 24 mg/dL (7-18)
--- NOTE | 2018-09-23 07:30 | NUR ---
RN NOTE RECEIVED PATIENT IN BED, EASILY AWAKEN BY VERBAL STIMULI, ALERT/ORIENTED X 4, ABLE TO MAKE NEEDS KNOWN, ON 2 L/MIN VIA NASAL CANULA,SATURATING WELL, NOT ON ANY FORM OF RESPIRATORY DISTRESS NOTED, NO PAIN OR DISCOMFORT NOTED, RECEIVED PATIENT WITH CONTINUOUS ANTIBIOTIC LEVOQUIN, DX: RIGHT LUNG PNEUMONIA/ACUTE ON CHRONIC RENAL FAILURE, LEFT AC 18 GAUGE, IV SITE IS INTACT, NO S/S OF INFECTION/INFILTRATION NOTED, ALL SAFETY MEASURES TAKEN Addendum: 09/23/18 at 1210 by ROCKY HOLLOWAY RN ANTIBIOTIC AND G 18 UV LINE PLACED IN ERRONEOUSLY. PATIENT RECEIVING NS AT 75CC/HR THROUGH THE RFA IV LINE G 22. LINE IN PLACE AND INTACT. [facility] USE OF CALL LIGHT FOR ASSISSTANCE, WILL CONTINUE TO MONITOR PATIENT
[2018-09-23 08:00] VITALS: BP 139/73
[2018-09-23] MEDS: ENSURE ENLIVE 237 ML LIQUID (VANILLA) PO SCH ×4 (09:01→17:42)
[2018-09-23] MEDS: DONEPEZIL 5 MG TABLET PO SCH (09:01)
[2018-09-23] MEDS: DULOXETINE HCL 20 MG CAPSULE.DR PO SCH (09:01)
[2018-09-23] MEDS: PANTOPRAZOLE 40 MG VIAL IV SCH (09:01)
[2018-09-23] MEDS: BUPROPION XL 150 MG TAB.ER.24 PO SCH (09:02)
[2018-09-23] MEDS: LOSARTAN POTASSIUM 50 MG TABLET PO SCH (09:02)
[2018-09-23] MEDS: CARVEDILOL 6.25 MG TABLET PO SCH ×2 (09:02→17:43)
[2018-09-23] MEDS: GABAPENTIN 300 MG CAPSULE PO SCH ×2 (09:03→17:42)
[2018-09-23] MEDS: CLOPIDOGREL BISULFATE 75 MG TABLET PO SCH (09:03)
[2018-09-23] MEDS: LEVOTHYROXINE SODIUM 25 MCG TABLET PO SCH (09:05)
[2018-09-23] MEDS: FLUTICASONE/VILANTEROL 1 EACH BLST.W.DEV IH SCH (09:05)
[2018-09-23] MEDS: oxyCODONE/APAP (5/325 MG) 1 UDTAB TABLET PO PRN (10:14)
[2018-09-23 16:00] VITALS: BP 110/58
[2018-09-23 19:18] LABS: URINE TOTAL PROTEIN 25.9 mg/dL (0-11.9)
--- NOTE | 2018-09-23 19:29 | NUR ---
RN NOTES ENDORSED PATIENT FOR CONTINUITY OF CARE. NO ACUTE CHANGES WITHIN THE SHIFT. ALL NURSING NEED ATTENDED AND MET. SAFETY MEASURES IN PLACE AT ALL TIMES. CALL LIGHT WITHIN REACH
[2018-09-23 19:34] LABS: APPEARANCE,URINE SL CLOUDY (CLEAR); BILIRUBIN,URINE NEGATIVE (NEGATIVE); BLOOD, URINE NEGATIVE Ery/uL (NEGATIVE); COLOR,URINE YELLOW (YELLOW); KETONES,URINE NEGATIVE (NEGATIVE); LEUKOCYTE ESTERASE ,URINE NEGATIVE (NEGATIVE); NITRITE, URINE NEGATIVE (NEGATIVE); PH,URINE 5.5 (5.0-8.0); PROTEIN,URINE NEGATIVE (NEGATIVE); UGLUCOSE NEGATIVE (NEGATIVE); UROBILINOGEN,URINE 0.2 EU/dL (0.2)
[2018-09-23 19:51] LABS: EOSINOPHIL,URINE None Seen
[2018-09-23 20:00] VITALS: BP 132/71
--- NOTE | 2018-09-23 20:00 | NUR ---
AUDIO INSTALLER NOTES RECEIVED PT ON BED. ON ROOM AIR NO RESPIRATORY DISTRESS NOTED. IV ACESS ON RFA G22 NS @ 75CC/HR. HEAD OF BED ELEVATED. SIDE RAILS UP. CALL LIGHT WITHIN REACH. BED ALARM ON. WILL CONTINUE TO MONITOR PT CLOSELY.
[2018-09-23] MEDS: SIMVASTATIN 40 MG TABLET PO SCH (21:03)
[2018-09-23] MEDS: CEFTRIAXONE 1 G in IV D5W 50 ML IV SCH (21:03)
[2018-09-23] MEDS: AZITHROMYCIN 250 MG TABLET PO SCH (21:04)
[2018-09-23] MEDS: ZOLPIDEM TARTRATE 5 MG TABLET PO PRN ×2 (23:44→23:52)
[2018-09-24] MEDS: oxyCODONE/APAP (5/325 MG) 1 UDTAB TABLET PO PRN (03:19)
[2018-09-24 06:03] VITALS: BP 119/69
--- NOTE | 2018-09-24 06:59 | NUR ---
FINISH PATCHER NOTES NO ACUTE CHANGES NOTED DURING THE SHIFT, PROVIDED COMFORT AND SAFETY. PROVIDED FREQUENT SUCTIONING. WILL ENDORSE TO THE AM NURSE FOR CONTINUITY OF CARE. Addendum: 09/24/18 at 0701 by VICTORINO ARAGON RN WRONG PATIENT
--- NOTE | 2018-09-24 07:01 | NUR ---
MS RN NOTES NO ACUTE CHANGES NOTED DURING THE SHIFT, PROVIDED COMFORT AND SAFETY. WILL ENDORSE TO THE AM NURSE FOR CONTINUITY OF CARE.
[2018-09-24 07:34] LABS: BASOPHILS % (AUTO) 0.4 % (0.0-2.0); EOSINOPHILS % (AUTO) 5.3 % (0.0-6.0); HEMATOCRIT 28 % (39-51); HEMOGLOBIN 9.7 g/dL (13.5-17.5); LYMPHOCYTES # (AUTO) 0.9 /CMM (0.8-4.8); LYMPHOCYTES % (AUTO) 11.2 % (20.0-44.0); MEAN CORPUSCULAR HGB CONC 35 g/dl (31.0-36.0); MEAN CORPUSCULAR VOLUME 84 fL (80-96); MONOCYTES # (AUTO) 0.8 /CMM (0.1-1.30); MONOCYTES % (AUTO) 10.3 % (2.0-12.0); NEUTROPHILS # (AUTO) 5.7 /CMM (1.8-8.9); NEUTROPHILS % (AUTO) 72.8 % (43.0-81.0); PLATELET COUNT (AUTO) 212 /CMM (150-450); RED BLOOD CELL COUNT(AUTO) 3.34 MIL/uL (4.5-6.0); WHITE BLOOD COUNT (AUTO) 7.8 K/uL (4.3-11.0)
[2018-09-24] MEDS: LEVOTHYROXINE SODIUM 25 MCG TABLET PO SCH (07:50)
[2018-09-24 08:00] VITALS: BP 132/78
[2018-09-24 08:01] LABS: ALANINE AMINOTRANSFERASE 17 U/L (12-78); ALBUMIN 2.1 g/dL (3.4-5.0); ALKALINE PHOSPHATASE 50 U/L (46-116); ASPARTATE AMINOTRANSFERASE 15 U/L (15-37); BILIRUBIN,TOTAL 0.4 mg/dL (0.2-1.0); CALCIUM, SERUM 7.9 mg/dL (8.5-10.1); CARBON DIOXIDE 26 mmol/L (21-32); CHLORIDE 108 mmol/L (98-107); CREATININE 1.7 mg/dL (0.6-1.3); GLUCOSE 96 mg/dL (74-106); MAGNESIUM 1.5 mg/dL (1.8-2.4); PHOSPHORUS 3.5 mg/dL (2.5-4.9); POTASSIUM 4.3 mmol/L (3.5-5.1); SODIUM SERUM 140 mmol/L (136-145); TOTAL PROTEIN, SERUM 5.3 g/dL (6.4-8.2); UREA NITROGEN, BLOOD 22 mg/dL (7-18)
[2018-09-24] MEDS: CLOPIDOGREL BISULFATE 75 MG TABLET PO SCH (09:59)
[2018-09-24] MEDS: GABAPENTIN 300 MG CAPSULE PO SCH ×2 (09:59→17:52)
[2018-09-24] MEDS: LOSARTAN POTASSIUM 50 MG TABLET PO SCH (10:00)
[2018-09-24] MEDS: CARVEDILOL 6.25 MG TABLET PO SCH ×2 (10:00→17:56)
[2018-09-24] MEDS: DULOXETINE HCL 20 MG CAPSULE.DR PO SCH (10:00)
[2018-09-24] MEDS: BUPROPION XL 150 MG TAB.ER.24 PO SCH (10:00)
[2018-09-24] MEDS: PANTOPRAZOLE 40 MG VIAL IV SCH (10:01)
[2018-09-24] MEDS: DONEPEZIL 5 MG TABLET PO SCH (10:01)
[2018-09-24] MEDS: Magnesium 1GM/D5W 100ML PREMIX 100 ML IV SCH ×2 (10:06→15:57)
--- NOTE | 2018-09-24 11:00 | NUR ---
RN NOTE: RECEIVED A VERBAL ORDER FROM DR. DIALLO TO GIVE COLACE AND A PT EVALUATION FOR THE PATIENT. ORDER, NOTED AND CARRIED OUT.
[2018-09-24] MEDS: ENSURE ENLIVE 237 ML LIQUID (VANILLA) PO SCH ×3 (12:58→17:00)
[2018-09-24] MEDS: DOCUSATE SODIUM 250 MG CAPSULE PO SCH ×2 (12:58→17:52)
--- NOTE | 2018-09-24 13:08 | NUR ---
Nurse Notes: Charge nurse Kiah made aware Ambien was found in the bed. Patient sitting on side of bed, pill is found on the sheet. dose was suppose to be given at 2352 09/23/2018, at bedside. notice pill on bed. pill shown to the charge nurse.
[2018-09-24] MEDS ORDERED: Magnesium 1GM/D5W 100ML PREMIX 100 ML IV SCH (14:00)
--- NOTE | 2018-09-24 14:56 | NUR ---
APRIL received a call from the [facility]es stating that the family member for this pt would like to meet with a SW. APRIL went down and met with the pt and the pt's who stated that they would like support in the home once the pt is discharged. APRIL was told that the pt has Medicare and [facility] for insurance and that a few years ago, the pt had used [facility] for support. APRIL stated that she would inform the child support case officer, Agatha, to assist them with their discharge planning needs.
[2018-09-24 16:00] VITALS: BP_SYST 136; BP_SYST 137; BP_SYST 155; BP_DIAS 71; BP_DIAS 81
[2018-09-24] MEDS: ALBUTEROL FS 2.5 MG/0.5 ML VIAL.NEB NEB PRN (19:46)
[2018-09-24 20:00] VITALS: BP 150/87
--- NOTE | 2018-09-24 20:00 | NUR ---
MS RN NOTES RECEIVED PT ON BED. A/O X 4. AT BEDSIDE ON ROOM AIR NO RESPI DISTRESS NOTED. IV ACCESS RFA G22, LEAKING WILL INSERT ANOTHER ONE.HEAD OF BED ELEVATED. SIDE RAILS UP. CALL LIGHT WITHIN REACH. BED ALARM ON. WILL CONTINUE TO MONITOR PT CLOSELY.
[2018-09-24] MEDS: SIMVASTATIN 40 MG TABLET PO SCH (21:17)
[2018-09-24] MEDS: CEFTRIAXONE 1 G in IV D5W 50 ML IV SCH (21:17)
[2018-09-24] MEDS: AZITHROMYCIN 250 MG TABLET PO SCH (21:17)
[2018-09-25] MEDS: ZOLPIDEM TARTRATE 5 MG TABLET PO PRN (00:21)
[2018-09-25] MEDS: IV NS 0.9% 1,000 ML IV PRN (00:25)
--- NOTE | 2018-09-25 02:30 | NUR ---
MS PLANT ATTENDANT OR ASSISTANT OPERATOR NOTE PATIENT D/C HOME WITH NYA AND SON IN STABLE CONDITION.VITAL SIGNS STABLE .NO SOB NO DISTRESS NOTED AT THIS TIME.ON RA SATURATING 96%.REFUSED TO TAKE ENSURE.DISCHARGE INSTRUCTIONS ,EXIT CARE GIVEN TO PATIENT AND ,VERBALIZED UNDERSTANDING.SIGNED THE PAPERWORK BY THE PATIENT.TOOK ALL THE BELONGING.BELONGING LIST SIGNED. PER MED RECON PATIENT TO BE CONTINUE WITH PREDNISONE,BUT SAID PATIENT NOT TAKING AT HOME. MADE AWARE.CLARIFIED THE MEDICATION ORDERS.NEURONTIN ADDED WITH MED RECON.IV REMOVED.MILD BLEEDING NOTED.PATIENT REFUSED BODY CHECK .HE STATED THAT HE IS CLEAN NO WOUNDS IN THE BODY.PRESSURE DRESSING APPLIED.ACCOMPANIED BY DIRECT SUPPORT WORKER TO CAR WITH FAMILY FOR DISCHARGE.
[2018-09-25 04:00] VITALS: BP 124/68
[2018-09-25] MEDS: oxyCODONE/APAP (5/325 MG) 1 UDTAB TABLET PO PRN (04:41)
[2018-09-25 07:13] LABS: BASOPHILS % (AUTO) 0.5 % (0.0-2.0); EOSINOPHILS % (AUTO) 4.3 % (0.0-6.0); HEMATOCRIT 28 % (39-51); HEMOGLOBIN 9.6 g/dL (13.5-17.5); LYMPHOCYTES # (AUTO) 0.7 /CMM (0.8-4.8); LYMPHOCYTES % (AUTO) 8.4 % (20.0-44.0); MEAN CORPUSCULAR HGB CONC 35 g/dl (31.0-36.0); MEAN CORPUSCULAR VOLUME 84 fL (80-96); MONOCYTES # (AUTO) 0.8 /CMM (0.1-1.30); MONOCYTES % (AUTO) 9.6 % (2.0-12.0); NEUTROPHILS # (AUTO) 6.7 /CMM (1.8-8.9); NEUTROPHILS % (AUTO) 77.2 % (43.0-81.0); PLATELET COUNT (AUTO) 224 /CMM (150-450); RED BLOOD CELL COUNT(AUTO) 3.32 MIL/uL (4.5-6.0); WHITE BLOOD COUNT (AUTO) 8.7 K/uL (4.3-11.0)
--- NOTE | 2018-09-25 07:20 | NUR ---
MS RN OPENING NOTES RECEIVED PT ON BED. A/O X 4. MILD WHEEZING NOTED. ON ROOM AIR WITH O2 SAT OF 95%. IV ACCESS RFA G22.WITH NS ONGOING.HEAD OF BED ELEVATED. SIDE RAILS UP. CALL LIGHT WITHIN REACH. BED ALARM ON. WILL CONTINUE TO MONITOR.
--- NOTE | 2018-09-25 07:23 | NUR ---
MS RN NOTES NO ACUTE CHANGES NOTED DURING THE SHIFT. PROVIDED COMFORT AND SAFETY. WILL ENDORSE TO THE AM NURSE FOR CONTINUITY OF CARE.
[2018-09-25 07:37] LABS: CALCIUM, SERUM 7.9 mg/dL (8.5-10.1); CARBON DIOXIDE 25 mmol/L (21-32); CHLORIDE 105 mmol/L (98-107); CREATININE 1.6 mg/dL (0.6-1.3); GLUCOSE 101 mg/dL (74-106); POTASSIUM 4.2 mmol/L (3.5-5.1); SODIUM SERUM 139 mmol/L (136-145); UREA NITROGEN, BLOOD 20 mg/dL (7-18)
[2018-09-25] MEDS: LEVOTHYROXINE SODIUM 25 MCG TABLET PO SCH (07:54)
[2018-09-25 08:00] VITALS: BP 126/51
[2018-09-25] MEDS: DULOXETINE HCL 20 MG CAPSULE.DR PO SCH (08:46)
[2018-09-25] MEDS: DOCUSATE SODIUM 250 MG CAPSULE PO SCH (08:46)
[2018-09-25] MEDS: BUPROPION XL 150 MG TAB.ER.24 PO SCH (08:46)
[2018-09-25] MEDS: FLUTICASONE/VILANTEROL 1 EACH BLST.W.DEV IH SCH (08:46)
[2018-09-25] MEDS: DONEPEZIL 5 MG TABLET PO SCH (08:47)
[2018-09-25] MEDS: CARVEDILOL 6.25 MG TABLET PO SCH (08:47)
[2018-09-25] MEDS: CLOPIDOGREL BISULFATE 75 MG TABLET PO SCH (08:47)
[2018-09-25] MEDS: GABAPENTIN 300 MG CAPSULE PO SCH (08:49)
[2018-09-25 08:50] VITALS: BP 126/51
[2018-09-25] MEDS: PANTOPRAZOLE 40 MG VIAL IV SCH (08:50)
[2018-09-25] MEDS: LOSARTAN POTASSIUM 50 MG TABLET PO SCH (08:50)
[2018-09-25] MEDS: ENSURE ENLIVE 237 ML LIQUID (VANILLA) PO SCH ×2 (08:54→13:00)
[2018-09-25] MEDS: ALBUTEROL FS 2.5 MG/0.5 ML VIAL.NEB NEB PRN (10:39)
--- NOTE | 2018-09-25 11:45 | NUR ---
MS RN NOTE SEEN BY GOT ORDER FOR DISCHARGE.UPDATED ABOUT PATIENT CONDITION. WAS IN THE ROOM WITH PATIENT.DOCTOR ANSWERED ALL THE QUESTIONS.WILL CONTINUE TO MONITOR.
== END 2018-09-25 14:30 | disposition home or self-care (01) | DRG 177 ==
LOC: ER 18:56 → MEDSG1 20:31 → TELE1 09-22 00:20 → MEDSG1 09-23 22:30
PROVIDERS: ADMIT Nurse Practitioner Acute Care; ATTEND Family Medicine
DX: J69.0 Pneumonitis due to inhalation of food and vomit (principal); N17.0 Acute kidney failure with tubular necrosis; E43 Unspecified severe protein-calorie malnutrition; I21.A1 Myocardial infarction type 2; I13.0 Hypertensive heart and chronic kidney disease with heart failure and stage 1 through stage 4 chronic kidney disease, or unspecified chronic kidney disease; J44.0 Chronic obstructive pulmonary disease with (acute) lower respiratory infection; I50.32 Chronic diastolic (congestive) heart failure; J15.9 Unspecified bacterial pneumonia; E86.0 Dehydration; E78.5 Hyperlipidemia, unspecified; D63.8 Anemia in other chronic diseases classified elsewhere; I25.10 Atherosclerotic heart disease of native coronary artery without angina pectoris; N18.9 Chronic kidney disease, unspecified; G89.29 Other chronic pain; I25.2 Old myocardial infarction; Z95.1 Presence of aortocoronary bypass graft; Z95.5 Presence of coronary angioplasty implant and graft; K21.9 Gastro-esophageal reflux disease without esophagitis; E88.09 Other disorders of plasma-protein metabolism, not elsewhere classified; Z68.22 Body mass index [BMI] 22.0-22.9, adult; R13.10 Dysphagia, unspecified; E86.1 Hypovolemia; Z85.820 Personal history of malignant melanoma of skin; K22.5 Diverticulum of esophagus, acquired
CPT/HCPCS: 36415; 71045-TC; 76770-TC; 80048-TC; 80053-TC; 80061-TC; 80076-TC; 81000-TC; 82570-TC; 83735-TC; 84100-TC; 84155-TC; 84300-TC; 84484-TC; 85025-TC; 87040-TC; 87070-TC; 87081-TC; 92611-TC; C9113; G0378; J0456; J0696; J1956; J3475; J7030; J7060

== ENCOUNTER 2019-06-19 16:57 | Inpatient (IN) | payer MEDICARE ==
[~2019-06-19] VITALS: Ht 177.8 cm; Wt 72.6 kg
[~2019-06-19 16:57] MED LIST changes: +SIMV-49 PO; -SIMV40TA5 PO
--- NOTE | 2019-06-19 17:11 | NUR ---
CAME IN FOR WEAKNESS, N/V AND DIARRHEA SINCE THIS MORNING. TO ER BED 6, HOOKED TO MONITOR, CHANGED TO HOSP GOWN, AWAITING MD HIDALGO.
--- NOTE | 2019-06-19 17:12 | NUR ---
DR WEN AT BEDSIDE
[2019-06-19 17:26] LABS: BASOPHILS # (AUTO) 0.1 /CMM (0.0-0.2); BASOPHILS % (AUTO) 0.6 % (0.0-2.0); EOSINOPHILS % (AUTO) 0.2 % (0.0-6.0); HEMATOCRIT 39 % (39-51); HEMOGLOBIN 12.6 g/dL (13.5-17.5); LYMPHOCYTES # (AUTO) 0.4 /CMM (0.8-4.8); LYMPHOCYTES % (AUTO) 2.5 % (20.0-44.0); MEAN CORPUSCULAR HGB CONC 33 g/dl (31.0-36.0); MEAN CORPUSCULAR VOLUME 88 fL (80-96); MONOCYTES # (AUTO) 0.5 /CMM (0.1-1.30); MONOCYTES % (AUTO) 3.3 % (2.0-12.0); NEUTROPHILS # (AUTO) 14.8 /CMM (1.8-8.9); NEUTROPHILS % (AUTO) 93.4 % (43.0-81.0); PLATELET COUNT (AUTO) 236 /CMM (150-450); RED BLOOD CELL COUNT(AUTO) 4.43 MIL/uL (4.5-6.0); WHITE BLOOD COUNT (AUTO) 15.9 K/uL (4.3-11.0)
[2019-06-19] MEDS ORDERED: IV NS 0.9% 500 ML BAG IV ONE (17:30)
[2019-06-19] MEDS ORDERED: LACT1CAP71 PO (17:36)
[2019-06-19] MEDS ORDERED: PANT20TA3 PO (17:36)
[2019-06-19] MEDS ORDERED: ASCO500T9 PO (17:36)
[2019-06-19] MEDS ORDERED: OXYC-162 PO (17:36)
[2019-06-19] MEDS ORDERED: PSYL3.4P6 PO (17:36)
[2019-06-19] MEDS ORDERED: CARV3.122 PO (17:36)
[2019-06-19] MEDS ORDERED: MULT-24 PO (17:36)
[2019-06-19] MEDS ORDERED: CHOL100044 PO (17:36)
[2019-06-19] MEDS ORDERED: FLUT1BLS6 INH (17:36)
[2019-06-19] MEDS ORDERED: ASPI-1169 PO (17:36)
[2019-06-19] MEDS ORDERED: GABA-534 PO (17:36)
[2019-06-19] MEDS ORDERED: FAMO20TA8 PO (17:36)
[2019-06-19 17:38] LABS: CALCIUM, SERUM 8.8 mg/dL (8.5-10.1); CARBON DIOXIDE 26 mmol/L (21-32); CHLORIDE 104 mmol/L (98-107); CREATININE 2.3 mg/dL (0.6-1.3); GLUCOSE 121 mg/dL (74-106); POTASSIUM 5.4 mmol/L (3.5-5.1); SODIUM SERUM 138 mmol/L (136-145); UREA NITROGEN, BLOOD 34 mg/dL (7-18)
[2019-06-19 17:44] LABS: ALANINE AMINOTRANSFERASE 19 U/L (12-78); ALKALINE PHOSPHATASE 65 U/L (46-116); ASPARTATE AMINOTRANSFERASE 21 U/L (15-37); BILIRUBIN,DIRECT 0.2 mg/dL (0.0-0.2); BILIRUBIN,TOTAL 1.1 mg/dL (0.2-1.0); TOTAL PROTEIN, SERUM 6.6 g/dL (6.4-8.2)
[2019-06-19] MEDS ORDERED: IV NS 0.9% 1,000 ML BAG IV ONE (18:00)
--- NOTE | 2019-06-19 18:16 | NUR ---
PATIENT BACK FROM CT SCAN.
[2019-06-19] MEDS ORDERED: CEFTRIAXONE 1GM BAG (ER ONLY) 1 GM/50 ML PIGGYBACK IV ONE (19:30)
[2019-06-19] MEDS ORDERED: CEFTRIAXONE 1GM BAG (ER ONLY) 50 ML IV ONE (19:51)
[2019-06-19] MEDS ORDERED: AZITHROMYCIN 500 MG VIAL ONE (19:52)
[2019-06-19] MEDS ORDERED: WATER FOR INJECTION,STERILE 10 ML ONE (19:56)
--- NOTE | 2019-06-19 19:58 | NUR ---
CALLED RN, WAITING FOR M/S BED
--- NOTE | 2019-06-19 20:12 | NUR ---
MARK DUFFY GAVE BED 309-2
[2019-06-19] MEDS ORDERED: ALBUTEROL FS 2.5 MG/0.5 ML VIAL.NEB NEB PRN (20:30)
[2019-06-19] MEDS ORDERED: MAG HYDROX/AL HYDROX/SIMETH 30 ML UDC PO PRN (20:30)
[2019-06-19] MEDS ORDERED: ONDANSETRON HCL/PF 4 MG/2 ML VIAL IVP PRN (20:30)
[2019-06-19] MEDS ORDERED: ZOLPIDEM TARTRATE 5 MG TABLET PO PRN (20:30)
[2019-06-19] MEDS ORDERED: MORPHINE SULFATE INJ 2 MG/ML DISP.SYRIN IV PRN (20:30)
[2019-06-19] MEDS ORDERED: MAGNESIUM HYDROXIDE 30 ML UDC PO PRN (20:30)
[2019-06-19] MEDS ORDERED: HYDROCODONE/APAP 5/325MG 1 EACH TABLET PO PRN (20:30)
[2019-06-19] MEDS ORDERED: ACETAMINOPHEN 325 MG TABLET PO PRN (20:30)
[2019-06-19] MEDS ORDERED: Z GUARD REMEDY 2 OZ OINT TP PRN (20:30)
--- NOTE | 2019-06-19 20:43 | NUR ---
REPORT GIVEN TO LANCE OF MS UNIT
[2019-06-19] MEDS: AZITHROMYCIN 500 MG in IV D5W 250 ML IV SCH (20:45)
--- NOTE | 2019-06-19 21:00 | NUR ---
URINE SAMPLE COLLECTED AND SENT TO LAB
[2019-06-19 21:04] LABS: APPEARANCE,URINE CLEAR (CLEAR); BILIRUBIN,URINE Negative (NEGATIVE); BLOOD, URINE Negative Ery/uL (NEGATIVE); COLOR,URINE Dark (YELLOW); KETONES,URINE Negative (NEGATIVE); LEUKOCYTE ESTERASE ,URINE Negative (NEGATIVE); NITRITE, URINE Negative (NEGATIVE); PH,URINE 5.5 (5.0-8.0); PROTEIN,URINE Trace mg/dl (NEGATIVE); UGLUCOSE Negative (NEGATIVE); UROBILINOGEN,URINE 0.2 EU/dL (0.2)
--- NOTE | 2019-06-19 21:10 | NUR ---
RN OPEN NOTES RECEIVED PATIENT FROM ER VIA BOYD WITH FAMILY AT BEDSIDE. A/OX3. NO SIGNS OF DISTRESS OR DISCOMFORT. BREATHING EVEN AND UNLABORED. ON 2LPM O2 VIA NC. IV ACCESS IN LAC, PATENT AND INTACT, NO SIGNS OF REDNESS OR INFILTRATION. ATTACHED TO TELE MONITORING WITH SR 76 NOTED. ORIENTED PATIENT TO UNIT AND ROOM. BED IN LOW LOCKED POSITION WITH SIDE RAILS X2. CALL LIGHT WITHIN REACH. BED ALARM ON. WILL CONTINUE TO MONITOR.
[2019-06-19 21:13] LABS: BACTERIA,URINE Few /HPF (None Seen); SQUAMOUS EPITHELIAL CELL,UR Rare /HPF (None Seen)
[2019-06-19 21:14] LABS: RBC,URINE 0-2 /HPF (0-2)
[2019-06-19 21:19] LABS: WBC,URINE 0-2 /HPF (0-3)
[2019-06-19 22:14] VITALS: BP 144/82
[2019-06-19] MEDS: DONEPEZIL 5 MG TABLET PO SCH (22:24)
[2019-06-19] MEDS: ASPIRIN 81 MG TAB.CHEW PO SCH (22:24)
[2019-06-19] MEDS: DULOXETINE HCL 20 MG CAPSULE.DR PO SCH (22:24)
[2019-06-19] MEDS: IV D5/0.45 NACL 1,000 ML IV PRN (22:24)
[2019-06-19] MEDS: FAMOTIDINE (20 MG) 20 MG TABLET PO SCH (22:24)
[2019-06-20 00:23] VITALS: BP 113/60
[2019-06-20 04:00] VITALS: BP 137/73
--- NOTE | 2019-06-20 06:39 | NUR ---
RN CLOSING NOTES PATIENT RESTING IN BED, EASILY AROUSABLE. A/OX3. NO SIGNS OF DISTRESS OR DISCOMFORT. BREATHING EVEN AND UNLABORED. ON 2LPM O2 VIA NC. IV ACCESS IN LAC, PATENT AND INTACT, NO SIGNS OF REDNESS OR INFILTRATION. ON TELE MONITORING WITH SR 79 NOTED. NO SIGNIFICANT CHANGES THROUGH THE NIGHT. ALL NEEDS MET. BED IN LOW LOCKED POSITION WITH SIDE RAILS X2. CALL LIGHT WITHIN REACH. BED ALARM ON. WILL ENDORSE TO AM SHIFT FOR DIANNA.
--- NOTE | 2019-06-20 07:00 | NUR ---
CABINET FINISHER NOTES PATIENT IN BED ALERT ORIENTED X 3. NO ACUTE DISTRESS NOTED, BREATHING UNLABORED. IV ACCESS PATENT AND INTACT, NO REDNESS, NO SWELLING NOTED. SAFETY MEASURES IN PLACE. CALL LIGHT WITHIN REACH. WILL CONTINUE TO MONITOR ACCORDINGLY.
[2019-06-20 07:30] VITALS: BP 118/61
[2019-06-20] MEDS: PANTOPRAZOLE 40 MG TABLET.DR PO SCH (07:35)
[2019-06-20] MEDS: LEVOTHYROXINE SODIUM 25 MCG TABLET PO SCH (07:35)
[2019-06-20 07:57] LABS: BASOPHILS % (AUTO) 0.1 % (0.0-2.0); EOSINOPHILS % (AUTO) 0.2 % (0.0-6.0); HEMATOCRIT 30 % (39-51); HEMOGLOBIN 10.1 g/dL (13.5-17.5); LYMPHOCYTES # (AUTO) 0.6 /CMM (0.8-4.8); LYMPHOCYTES % (AUTO) 3.9 % (20.0-44.0); MEAN CORPUSCULAR HGB CONC 34 g/dl (31.0-36.0); MEAN CORPUSCULAR VOLUME 87 fL (80-96); MONOCYTES # (AUTO) 0.7 /CMM (0.1-1.30); NEUTROPHILS % (AUTO) 90.8 % (43.0-81.0); PLATELET COUNT (AUTO) 193 /CMM (150-450); RED BLOOD CELL COUNT(AUTO) 3.47 MIL/uL (4.5-6.0); WHITE BLOOD COUNT (AUTO) 14.4 K/uL (4.3-11.0)
[2019-06-20 08:12] LABS: ALANINE AMINOTRANSFERASE 13 U/L (12-78); ALBUMIN 2.3 g/dL (3.4-5.0); ALKALINE PHOSPHATASE 51 U/L (46-116); ASPARTATE AMINOTRANSFERASE 15 U/L (15-37); BILIRUBIN,TOTAL 0.8 mg/dL (0.2-1.0); CALCIUM, SERUM 7.7 mg/dL (8.5-10.1); CARBON DIOXIDE 27 mmol/L (21-32); CHLORIDE 106 mmol/L (98-107); GLUCOSE 122 mg/dL (74-106); MAGNESIUM 1.6 mg/dL (1.8-2.4); PHOSPHORUS 2.8 mg/dL (2.5-4.9); POTASSIUM 4.5 mmol/L (3.5-5.1); SODIUM SERUM 138 mmol/L (136-145); TOTAL PROTEIN, SERUM 5.5 g/dL (6.4-8.2); UREA NITROGEN, BLOOD 34 mg/dL (7-18)
[2019-06-20 08:16] LABS: CHOLESTEROL 67 mg/dL (<200); HDL CHOLESTEROL 38 mg/dL (40-60); LDL 25 mg/dL (0-99); THYROID STIMULATING HORMONE 2.014 uIU/mL (0.358-3.74); TRIGLYCERIDES 34 mg/dL (30-150)
[2019-06-20] MEDS: CHOLECALCIFEROL 1,000 UNIT TABLET (VIT D3) PO SCH (08:39)
[2019-06-20] MEDS: ASCORBIC ACID 500 MG TABLET PO SCH (08:39)
[2019-06-20] MEDS: ACIDOPHILUS/BULGARICUS 1 EACH TAB.CHEW PO SCH (08:39)
[2019-06-20] MEDS: GABAPENTIN 300 MG CAPSULE PO SCH ×2 (08:39→17:31)
[2019-06-20] MEDS: MULTIVITAMINS,THERAGRAN 1 UDTAB TABLET PO SCH (08:39)
[2019-06-20] MEDS: CARVEDILOL 3.125 MG TABLET PO SCH ×2 (08:40→17:31)
[2019-06-20] MEDS: CLOPIDOGREL BISULFATE 75 MG TABLET PO SCH (08:40)
[2019-06-20] MEDS: PSYLLIUM SEED 1 PKT PACKET PO SCH (08:40)
[2019-06-20] MEDS ORDERED: Magnesium 1GM/D5W 100ML PREMIX 100 ML IV SCH (11:30)
--- NOTE | 2019-06-20 11:30 | NUR ---
MS RN NOTES LABORATORY TEST RESULTED INCLUDING Procalcitonin elevated 15.32, DR INGRIS REY PRESENT ON THE FLOOR, NO NEW ORDERS MADE AT THIS TIME.
[2019-06-20] MEDS: IV D5/0.45 NACL 1,000 ML IV PRN (14:01)
[2019-06-20 16:00] VITALS: BP 157/80
[2019-06-20] MEDS: SIMVASTATIN 20 MG TABLET PO SCH (17:31)
[2019-06-20] MEDS: Fluticasone/Umeclidin/Vilanter (Trelegy Ellipta 100-62.5) INH SCH (18:06)
--- NOTE | 2019-06-20 18:49 | NUR ---
MS RN NOTES PATIENT IN BED ALERT ORIENTED X 3. NO ACUTE DISTRESS NOTED, BREATHING UNLABORED.NO SOB NOTED. IV ACCESS PATENT AND INTACT, NO REDNESS, NO SWELLING NOTED. DUE MEDICATIONS GIVEN, NO ASE NOTED. NEEDS ATTENDED AND ANTICIPATED. KEPT CLEAN DRY AND COMFORTABLE. SAFETY MEASURES IN PLACE. CALL LIGHT WITHIN REACH. WILL ENDORSE TO NIGHT NURSE FOR CONTINUITY OF CARE.
[2019-06-20] MEDS ORDERED: CEFTRIAXONE 1 G in IV D5W 50 ML IV SCH (19:30)
--- NOTE | 2019-06-20 19:35 | NUR ---
MSRN FULLY AWAKE, VERY PLEASANT. NO SOB, DENIES ANY DISCOMFORTS OF THIS TIME. LOWER EXTREMITIES SLIGHTLY SWOLLEN, ELEVATED ON PILLOWS. STATED MUCH BETTER THIS TIME, HAD 3 DOSES OF LASIX EARLIER. STRICT I/O. REMINDED TO CALL STAFF FOR ANY ASSISTANCE OR DISCOMFORTS. CLOSELY WATCHED. Addendum: 06/20/19 at 2041 by NICOLE BEAVER RN ABOVE DOCUMENTATION NOT INTENDED FOR THIS PATIENT. DISREGARD.
--- NOTE | 2019-06-20 19:40 | NUR ---
MSRN FULLY AWAKE, FEELS WEAK. ON IV HYDRATION. POOR ORAL INTAKE. STATED HE DOES NOT HAVE PNA. PATIENT ON IV ANTIBIOTICS. MEDICATION REGIMEN DISCUSSED WITH PATIENT, APPEARS TO UNDERSTAND. ALL NEEDS ATTENDED, VOIDED USING URINAL, MONITORED. CLOSELY WATCHED.
[2019-06-20 20:00] VITALS: BP 134/55
[2019-06-20] MEDS ORDERED: AZITHROMYCIN 500 MG in IV D5W 250 ML IV SCH (20:30)
--- NOTE | 2019-06-20 20:46 | NUR ---
MSRN CALLED, UPDATED PATIENTS STATUS. INFORMED PATIENT.
[2019-06-20 20:54] VITALS: BP 134/55
[2019-06-20] MEDS: AZITHROMYCIN 500 MG in IV D5W 250 ML IV SCH (21:07)
[2019-06-20] MEDS: DULOXETINE HCL 20 MG CAPSULE.DR PO SCH (21:55)
[2019-06-20] MEDS: ASPIRIN 81 MG TAB.CHEW PO SCH (21:55)
[2019-06-20] MEDS: FAMOTIDINE (20 MG) 20 MG TABLET PO SCH (21:55)
[2019-06-20] MEDS: DONEPEZIL 5 MG TABLET PO SCH (21:55)
--- NOTE | 2019-06-20 22:53 | NUR ---
MSRN DUE MEDS ADMINISTERED ORDERED. REFUSED BREATHING TREATMENT. SOB ON MINIMAL EXERTION, 02 2L VIA NC MAINTAINED.REPOSITIONED FOR COMFORT.
[2019-06-21] MEDS: IV D5/0.45 NACL 1,000 ML IV PRN (04:49)
--- NOTE | 2019-06-21 05:40 | NUR ---
MSRN OFFERED HHN TX, DECLINED.
--- NOTE | 2019-06-21 06:30 | NUR ---
MSRN SPOKE TO VIA PHONE, UPDATED. PATIENT HAD PARTIAL BED BATH, HAD BM. ALL NEEDS MADE. IVF CONTINUED.
[2019-06-21 08:00] VITALS: BP 152/68
--- NOTE | 2019-06-21 08:00 | NUR ---
RN NOTES RECEIVED PATIENT IN THE BED 89Y/OLD A/O X3, ON O2-2L NC, NO ACUTE RESPIRATORY DISTRESS, PATIENT REFUSED PAIN, NO NAUSEA AND VOMITING BUT REFUSED BREAKFAST. PER PATIENT HE DOES NOT WALK SINCE THURSDAY, AND IF TRY TO TAKE A BITE HE WILL VOMIT. PATIENT TURN AND REPOSTION SELF IN THE BED. SWOLLEN BILATERAL LOWER FEATS, AND FEEL WEAKNESS. ADMINISTERED SCHEDULED MEDICATION V/S TAKEN BP 152/82, P-65. CALL LIGHT WITHIN TO REACH. CONTINUED MONITORING.
[2019-06-21] MEDS ORDERED: LOSARTAN POTASSIUM 25 MG TABLET PO SCH (09:00)
[2019-06-21] MEDS: Fluticasone/Umeclidin/Vilanter (Trelegy Ellipta 100-62.5) INH SCH ×2 (09:00→17:58)
[2019-06-21] MEDS: PSYLLIUM SEED 1 PKT PACKET PO SCH (09:22)
[2019-06-21] MEDS: GABAPENTIN 300 MG CAPSULE PO SCH ×2 (09:23→17:51)
[2019-06-21] MEDS: CHOLECALCIFEROL 1,000 UNIT TABLET (VIT D3) PO SCH (09:23)
[2019-06-21] MEDS: CLOPIDOGREL BISULFATE 75 MG TABLET PO SCH (09:23)
[2019-06-21] MEDS: MULTIVITAMINS,THERAGRAN 1 UDTAB TABLET PO SCH (09:23)
[2019-06-21] MEDS: ACIDOPHILUS/BULGARICUS 1 EACH TAB.CHEW PO SCH (09:24)
[2019-06-21] MEDS: CARVEDILOL 3.125 MG TABLET PO SCH ×2 (09:24→17:53)
[2019-06-21] MEDS: ASCORBIC ACID 500 MG TABLET PO SCH (09:24)
[2019-06-21] MEDS: PANTOPRAZOLE 40 MG TABLET.DR PO SCH (09:30)
[2019-06-21] MEDS: LEVOTHYROXINE SODIUM 25 MCG TABLET PO SCH (09:30)
[2019-06-21] MEDS: ENOXAPARIN SODIUM 30 MG/0.3 ML DISP.SYRIN SQ SCH (09:32)
[2019-06-21] MEDS: IV NS 0.9% 1,000 ML IV PRN ×2 (09:50→22:04)
--- NOTE | 2019-06-21 11:00 | NUR ---
RN NOTES SEEN PATIENT BY FRANCESCO MARQUEZ, NEW ORDER IS EAT, AND AMBULATE WITH ASSIST.
--- NOTE | 2019-06-21 13:00 | NUR ---
RN NOTES PATIENT REFUSED TO AMBULATE. PATIENT STAT "YOU WALK FOR ME" EXPLAINED PATIENT NEED TO TRY, BUT STILL PATIENT REFUSED, HOSPITALIST SO AWARE OF CONTINUED MONITORING.
[2019-06-21 16:00] VITALS: BP 156/80
--- NOTE | 2019-06-21 16:00 | NUR ---
RN NOTES PATIENT COUGHING AND SPUTUM HAS OLD BLOOD ON IT, HOSPITALIST, AND Dr ESPITIA AWARE OF, NO NEW ORDER, Dr ESPITIA TALKED TO THE FAMILY AND EXPLAINED.
[2019-06-21] MEDS: SIMVASTATIN 20 MG TABLET PO SCH (17:52)
--- NOTE | 2019-06-21 18:30 | NUR ---
RN NOTES ADMINISTERED SCHEDULED MEDICATION, BP 183/76, P-78, PATIENT ANXIOUS, ALSO ADMINISTERED BREATHING INHALER. PATIENT REFUSED PAIN AND PAIN MEDICATION. PATIENT STATE " I WANTED TO EAT AND WALK TEATS ALL". PATIENT COUCHING SMALL AMOUNT OF BLOOD IN THE SPUTUM. INFUSING NS AT100 ML/HR ON RIGHT HAND. REFUSED LUNCH AND DINNER. CALL LIGHT WITHIN TO REACH, ELEVATED LOWER EXTREMITIES USING PILLOWS, NEEDS ATTENDED AND ANTICIPATED, PATIENT USING DIAPER, ENDORSED ONCOMING NURSE FOLLOW PLAN OF CARE.
--- NOTE | 2019-06-21 19:30 | NUR ---
RN NOTES/ASSESSMENT: received report from opal hall. pt a/o x3, does not want to participate in pt eval, refusing to eat, but kept complaining that he is weak, unable to ambulate. pt also has episode of blood tinge sputum, day md frederick and cardio made aware by day rafael joseph. iv access patent and flushing well, infusing with ns at 50ml/hr. pt refused scd despite providing education. safety precautions for fall initiated, call light in reach, will continue monitoring pt.
[2019-06-21 20:00] VITALS: BP 166/85
[2019-06-21 20:25] VITALS: BP 166/82
--- NOTE | 2019-06-21 20:30 | NUR ---
rn notes: UNABLE TO PERFORM SKIN ASSESSMENT, PT REFUSED FULL BODY CHECK. UPON ASSISTING CARPET FINISHING SUPERVISOR IN CHANGING PT'S DIAPER, NOTED SACRAL AREA TO BE C/D/I, NO PRESSURE INJURY NOTED, NO REDNESS. PT ABLE TO TURN AND REPOSITION BY HIMSELF
--- NOTE | 2019-06-21 21:00 | NUR ---
RN NOTES: NOTED BLOOD TINGED SPUTUM, PT JUST SPIT ON A CUP, AND MOST OF THE TIME WILL JUST SPIT WHEREVER HE WANTS. PT WAS PROVIDED WITH EMESIS BAG TO SPIT .
[2019-06-21] MEDS: FAMOTIDINE (20 MG) 20 MG TABLET PO SCH (22:04)
[2019-06-21] MEDS: ASPIRIN 81 MG TAB.CHEW PO SCH (22:04)
[2019-06-21] MEDS: DULOXETINE HCL 20 MG CAPSULE.DR PO SCH (22:04)
[2019-06-21] MEDS: DONEPEZIL 5 MG TABLET PO SCH (22:04)
[2019-06-21 22:14] VITALS: BP 134/91
--- NOTE | 2019-06-21 22:14 | NUR ---
RN NOTES: OFFERED JUICE AND JELLO, BASED ON PT'S DIET BUT PT REFUSED, STATED HE'S NOT HUNGRY. ASKED WHAT'S THE REASON FOR REFUSAL PT STATED HE'S NOT HUNGRY AND SIMPLY NOT WANTING TO EAT.
--- NOTE | 2019-06-22 | NUR ---
RN NOTES: NOTED PT TO BE SHORT TEMPERED, EASILY GETS ANGRY, FRUSTRATED, APPEARS BOSSY. WHEN OFFERED FOOD, PT ALWAYS REFUSED.STATED HE DOESNT NEED ANYTHING. FOUND SPUTUM INSIDE THE URINAL, AND MULTIPLE CUP, BUT EMESIS BAG WAS EMPTIED. RE-EDUCATE PT ABOUT USING EMESIS BAG.
--- NOTE | 2019-06-22 01:09 | NUR ---
rn notes: contacted hospitalist drafter construction regarding pt's c/o back and toe pain, 03/19, per pt he used to take oxycodone-apap 5/325 mg tab tid prn for pain. when check on home med list, it was held by admitting md. per dr funk t/o ayana to continue home med, oxycodone-apap 5/325 mg, 1 tab po tid prn pain management. order read back, verified and carried out.
--- NOTE | 2019-06-22 01:22 | NUR ---
PRN PERCOCET: PT C/O 02/16 LOWER BACK PAIN, TOE PAIN, REQUESTING FOR PAIN MEDICATION. PRN PERCOCET/OXYCODONE-APAP 5/325 MG 1 TAB PO ADMINISTERED TO PT AT THIS TIME. AFTER TAKING THE MEDS, PT STATED HE WANTS 2 TABLET, INFORMED PT ON HIS HOME MED LIST AND MD ORDER, HE WAS ONLY PERCOCET 1 TAB PRN TID FOR PAIN. PT GET UPSET, INSISTING HE WANTS 2TABLET , VOICING HE WOULD LIKE TO GO HOME INSTEAD AND CALL HIS LIFE. MARK BARRAGAN NOTIFIED.
[2019-06-22] MEDS ORDERED: oxyCODONE/APAP (5/325 MG) 1 UDTAB TABLET PO PRN (01:30)
--- NOTE | 2019-06-22 01:37 | NUR ---
RN NOTES: CONTACTED PT'S -MARCO, REGARDING PT'S BEHAVIOR OF WANTING TO LEAVE BECAUSE HE DIDINT GET THE DOSE OF PERCOCET HE WANTED. PER PT'S , THE LATEST PRESCRIPTION SHE GOT FOR THE PT WAS OKAY TO TAKE 2TAB OF PERCOCET FOR BACK PAIN. NOTIFIED MD EQUIPMENT OILER REGARDING THE PERCOCET DOSAGE. AWAITING HOSPITALIST TO CALL BACK.
--- NOTE | 2019-06-22 01:51 | NUR ---
RN NOTES: PER MD DISPATCH ASSOCIATE T/O OKAY TO GIVE 1 TIME DOSE OF PERCOCET 5/325 MG NOW. THEN CHANGE ORDER TO PERCOCET 5/325 MG, GIVE 2TAB TID PRN FOR PAIN MANAGEMENT. ORDER READ BACK AND VERIFIED, NOTED AND CARRIED OUT.
[2019-06-22] MEDS ORDERED: oxyCODONE/APAP (5/325 MG) 1 UDTAB TABLET PO ONE (02:00)
--- NOTE | 2019-06-22 02:06 | NUR ---
PRN PERCOCET: PRN PERCOCET 5/325 MG TAB PO ADMINISTERED FOR C/O LOWER BACK PAIN AND TOE PAIN 03/19. THIS IS A ONE TIME DOSE PT RECEIVED ANOTHER 5/325 MG TABLET EARLIER FOR HIS C/O PAIN. WILL CONTINUE TO MONITOR AND REASSESS PT.
--- NOTE | 2019-06-22 06:13 | NUR ---
RN CLOSING NOTES: PT REMAINS TO REFUSED ALL THE SNACK/FOOD BEING OFFERED. STATED THAT'S NOT HIS PRIORITY AT THIS TIME. IV ACCESS REMAINS PATENT AND FLUSHING WELL, INFUSING WITH NS AT 50ML/HR. NO S/S OF IV INFILTRATION NOTED. VS REMAINS STABLE, NEEDS ATTENDED. SAFETY PRECAUTIONS FOR FALL REMAINS ENGAGED, CALL LIGHT IN REACH, ENDORSED TO JONATHAN FLORES FOR CONTINUITY OF CARE.
--- NOTE | 2019-06-22 06:16 | NUR ---
RN NOTES RECEIVED ENDORSEMENT FROM MARK ARCHER. WILL CONTINUE TO MONITOR Pt's CONDITION AND SAFETY UNTIL END OF SHIFT.
--- NOTE | 2019-06-22 06:54 | NUR ---
RN CLOSING NOTES NO SIGNIFICANT CHANGES IN Pt's CONDITION. Pt REMAINS STABLE PER BASELINE. NO S/S OF ACUTE DISTRESS OR SEVERE SOB NOTED DURING THE SHIFT. ALL NEEDS MET AND ATTENDED TO. SAFETY MEASURES IN PLACE. BED LOW, LOCKED, HOB ELEVATED, SIDE RAILS UP, CALL LIGHT AND BEDSIDE TABLE WITHIN REACH. WILL ENDORSE TO DAYSHIFT RN FOR Pt's DIANNA.
[2019-06-22 07:01] LABS: BASOPHILS % (AUTO) 0.2 % (0.0-2.0); EOSINOPHILS % (AUTO) 1.1 % (0.0-6.0); HEMATOCRIT 27 % (39-51); LYMPHOCYTES # (AUTO) 0.5 /CMM (0.8-4.8); LYMPHOCYTES % (AUTO) 4.6 % (20.0-44.0); MEAN CORPUSCULAR HGB CONC 33 g/dl (31.0-36.0); MEAN CORPUSCULAR VOLUME 85 fL (80-96); MONOCYTES # (AUTO) 0.6 /CMM (0.1-1.30); MONOCYTES % (AUTO) 4.8 % (2.0-12.0); NEUTROPHILS # (AUTO) 10.5 /CMM (1.8-8.9); NEUTROPHILS % (AUTO) 89.3 % (43.0-81.0); PLATELET COUNT (AUTO) 185 /CMM (150-450); RED BLOOD CELL COUNT(AUTO) 3.15 MIL/uL (4.5-6.0); WHITE BLOOD COUNT (AUTO) 11.8 K/uL (4.3-11.0)
--- NOTE | 2019-06-22 07:20 | NUR ---
MS RN NOTES PATIENT IS A/O X4 IN BED SLEEPING ABLE TO AROUSE WHEN NAME CALLED.ON 2 L O2 94-95%. NO SOB AND DISCOMFORT NOTED AT THIS TIME. SINUS RHYTHM. NO ISOLATION , UNABLE TO AMBULATE BY HIMSELF. BED AT THE LOWEST POSITION AND LOCKED, CALL LIGHT WITHIN REACH.
[2019-06-22 07:36] LABS: ALANINE AMINOTRANSFERASE 12 U/L (12-78); ALKALINE PHOSPHATASE 52 U/L (46-116); ASPARTATE AMINOTRANSFERASE 10 U/L (15-37); CALCIUM, SERUM 7.6 mg/dL (8.5-10.1); CARBON DIOXIDE 25 mmol/L (21-32); CHLORIDE 107 mmol/L (98-107); CREATININE 1.6 mg/dL (0.6-1.3); GLUCOSE 87 mg/dL (74-106); MAGNESIUM 1.6 mg/dL (1.8-2.4); PHOSPHORUS 3.3 mg/dL (2.5-4.9); POTASSIUM 4.4 mmol/L (3.5-5.1); SODIUM SERUM 137 mmol/L (136-145); TOTAL PROTEIN, SERUM 5.2 g/dL (6.4-8.2); UREA NITROGEN, BLOOD 27 mg/dL (7-18)
[2019-06-22 08:00] VITALS: BP_SYST 123; BP_SYST 153; BP_DIAS 67; BP_DIAS 85
[2019-06-22 08:01] VITALS: BP 123/67
--- NOTE | 2019-06-22 08:15 | NUR ---
MS RN NOTES REMOVED NASAL CANNULA PER MD ORDER TO EVALUATE THE O2 SATURATION. PATIETN O2 SAT IS 92-94 %. WILL MONITOR THE PATIENT FOR SOB.
[2019-06-22] MEDS: LEVOTHYROXINE SODIUM 25 MCG TABLET PO SCH (08:53)
[2019-06-22] MEDS: PANTOPRAZOLE 40 MG TABLET.DR PO SCH (08:53)
[2019-06-22] MEDS: GABAPENTIN 300 MG CAPSULE PO SCH ×2 (08:54→16:55)
[2019-06-22] MEDS: CARVEDILOL 3.125 MG TABLET PO SCH ×2 (08:54→16:55)
[2019-06-22] MEDS: CLOPIDOGREL BISULFATE 75 MG TABLET PO SCH (08:55)
[2019-06-22] MEDS: ENOXAPARIN SODIUM 30 MG/0.3 ML DISP.SYRIN SQ SCH (08:59)
[2019-06-22] MEDS: ASCORBIC ACID 500 MG TABLET PO SCH (09:00)
[2019-06-22] MEDS: PSYLLIUM SEED 1 PKT PACKET PO SCH (09:00)
[2019-06-22] MEDS: CHOLECALCIFEROL 1,000 UNIT TABLET (VIT D3) PO SCH (09:00)
[2019-06-22] MEDS: ACIDOPHILUS/BULGARICUS 1 EACH TAB.CHEW PO SCH (09:00)
[2019-06-22] MEDS: MULTIVITAMINS,THERAGRAN 1 UDTAB TABLET PO SCH (09:00)
--- NOTE | 2019-06-22 09:32 | NUR ---
MS RN NOTES PATIENT REFUSED VITAMINS AND METAMUCIL NOT ADMINISTRATED. PATIENT DID NOT HAVE BOWEL MOVEMENT DUE TO LACK OF FOOD CONSUMPTION.
[2019-06-22] MEDS: Fluticasone/Umeclidin/Vilanter (Trelegy Ellipta 100-62.5) INH SCH ×2 (09:43→17:00)
[2019-06-22] MEDS: Magnesium 1GM/D5W 100ML PREMIX 100 ML IV SCH ×2 (10:21→11:38)
[2019-06-22] MEDS ORDERED: MAGNESIUM OXIDE 400 MG TABLET PO ONE (11:30)
--- NOTE | 2019-06-22 12:00 | NUR ---
MS RN NOTES PATIENT IS COMPLAINING OF HAVING DIFFICULTY WITH BREATHING. PUT PATIENT BACK TO NASAL CANNULA 2L O2 SAT IS 94-95%. PATIENT TOLERATED THE LIQUID DIET WELL IN THE MORNING FOR BREAKFAST. CHANGED THE DIET TO REGULAR PER MD ORDER. PATIENT IS REFUSING TO EAT DUE TO DIFFICULTY BREATHING. BREATHING TREATMENT WILL BE REQUESTED FOR PATIENT.
[2019-06-22 12:59] LABS: ABG BASE EXCESS -4.1 mmol/L; ABG PCO2 26.6 mmHg (35.0-45.0); ABG PH 7.452 (7.350-7.450); ABG PO2 71.5 mmHg (75.0-100.0); AaDO2 96.8 mmHg; SITE, ABG Right Radial; VENT MODE, BG Nasal Cannula
[2019-06-22] MEDS ORDERED: FUROSEMIDE 40 MG/4 ML VIAL IV ONE (13:00)
[2019-06-22 16:00] VITALS: BP 153/85
[2019-06-22] MEDS: oxyCODONE/APAP (5/325 MG) 1 UDTAB TABLET PO PRN (16:01)
[2019-06-22] MEDS: SIMVASTATIN 20 MG TABLET PO SCH (16:56)
--- NOTE | 2019-06-22 19:05 | NUR ---
RN MS OPENING NOTES RECEIVED PATIENT IN BED AWAKE ALERT AND ORIENTED X3-4 ON 2 L VIA NC RESPIRATIONS EVEN AND UNLABORED WITH EQUAL RISE AND FALL OF CHEST, DENIES ANY PAIN OR DISCOMFORT AT THIS TIME, IV SITE TO RIGHT HAND #20G INTACT AND PATENT, NO REDNESS, NO INFILTRATION PRESENT, URINAL AT BEDSIDE WITHIN REACH, ORIENTED TO STAFF AND CALL LIGHT AND KEPT WITHIN REACH, SAFETY PRECAUTIONS IN PLACE, LOW BED AND LOCKED, BED ALARM IN PLACE, DISCUSSED PLAN OF CARE, ALL NEEDS ATTENDED AT THIS TIME, REMAINS COMFORTABLE WILL CONTINUE TO MONITOR AND ATTEND TO NEEDS, NO RESPIRATORY DISTRESS PRESENT AT THIS TIME.
[2019-06-22 20:00] VITALS: BP 117/71
[2019-06-22] MEDS: DULOXETINE HCL 20 MG CAPSULE.DR PO SCH (21:56)
[2019-06-22] MEDS: ASPIRIN 81 MG TAB.CHEW PO SCH (21:56)
[2019-06-22] MEDS: DONEPEZIL 5 MG TABLET PO SCH (21:56)
[2019-06-22] MEDS: FAMOTIDINE (20 MG) 20 MG TABLET PO SCH (21:56)
--- NOTE | 2019-06-23 06:21 | NUR ---
RN MS CLOSING NOTES PATIENT IN BED AWAKE ALERT AND ORIENTED X3-4 ON 2 L VIA NC RESPIRATIONS EVEN AND UNLABORED WITH EQUAL RISE AND FALL OF CHEST, DENIES ANY PAIN OR DISCOMFORT AT THIS TIME AND THROUGHOUT THE SHIFT, IV SITE TO RIGHT HAND #20G INTACT AND PATENT, NO REDNESS, NO INFILTRATION PRESENT, URINAL AT BEDSIDE WITHIN REACH UO 800CC YELLOW CLEAR, CALL LIGHT KEPT WITHIN REACH, SAFETY PRECAUTIONS IN PLACE, LOW BED AND LOCKED, BED ALARM IN PLACE, BED BATH TOLERATED WELL, SKIN IS INTACT, PATIENT SLEPT WELL , ALL NEEDS ATTENDED AT THIS TIME, REMAINS COMFORTABLE WILL CONTINUE TO MONITOR AND ATTEND TO NEEDS, NO RESPIRATORY DISTRESS PRESENT THROUGHOUT SHIFT, PATIENT ATE A CUP OF FRUIT, 1/2 APPLE JUICE AND DRANK 1 CUP OF WATER, JELLO OFFERED AT BEDSIDE AND ENCOURAGED. REMAINS COMFORTABLE WILL CONTINUE TO MONITOR AND ENDORSE TO NEXT SHIFT, ALL DUE MEDS GIVEN NO ADVERSE REACTIONS NOTED.
[2019-06-23 06:35] LABS: BASOPHILS % (AUTO) 0.4 % (0.0-2.0); HEMATOCRIT 29 % (39-51); HEMOGLOBIN 9.9 g/dL (13.5-17.5); LYMPHOCYTES # (AUTO) 0.6 /CMM (0.8-4.8); LYMPHOCYTES % (AUTO) 6.1 % (20.0-44.0); MEAN CORPUSCULAR HGB CONC 34 g/dl (31.0-36.0); MEAN CORPUSCULAR VOLUME 85 fL (80-96); MONOCYTES # (AUTO) 0.7 /CMM (0.1-1.30); MONOCYTES % (AUTO) 6.7 % (2.0-12.0); NEUTROPHILS # (AUTO) 9.1 /CMM (1.8-8.9); NEUTROPHILS % (AUTO) 84.8 % (43.0-81.0); PLATELET COUNT (AUTO) 200 /CMM (150-450); RED BLOOD CELL COUNT(AUTO) 3.41 MIL/uL (4.5-6.0); WHITE BLOOD COUNT (AUTO) 10.7 K/uL (4.3-11.0)
[2019-06-23] MEDS: PANTOPRAZOLE 40 MG TABLET.DR PO SCH (07:09)
[2019-06-23] MEDS: LEVOTHYROXINE SODIUM 25 MCG TABLET PO SCH (07:09)
--- NOTE | 2019-06-23 07:17 | NUR ---
RN MS OPENING NOTES RECEIVED PATIENT AWAKE IN BED IN NO ACUTE SIGNS OF DISTRESS. A/O X4. ABLE TO MAKE NEEDS KNOWN, DENIES PAIN OR ANY DISCOMFORTS AT THIS TIME. ON O2 VIA N/C @ 2 LPM, TOLERATING WELL WITH NO SOB NOTED. IV SL ON RIGHT HAND #20G INTACT AND PATENT, NO REDNESS, NO S/S OF INFILTRATIONS NOTED. SAFETY MEASURES IN PLACE. BED IN LOW LOCKED POSITION WITH SR UP X2. CALL LIGHT AND BEDSIDE TABLE WITHIN EASY REACH OF PT. WILL CONTINUE TO MONITOR ACCORDINGLY. .
[2019-06-23 07:25] LABS: CALCIUM, SERUM 7.9 mg/dL (8.5-10.1); CARBON DIOXIDE 24 mmol/L (21-32); CHLORIDE 105 mmol/L (98-107); CREATININE 1.7 mg/dL (0.6-1.3); GLUCOSE 95 mg/dL (74-106); PHOSPHORUS 3.9 mg/dL (2.5-4.9); POTASSIUM 3.9 mmol/L (3.5-5.1); SODIUM SERUM 138 mmol/L (136-145); UREA NITROGEN, BLOOD 26 mg/dL (7-18)
[2019-06-23] MEDS: MULTIVITAMINS,THERAGRAN 1 UDTAB TABLET PO SCH (08:16)
[2019-06-23] MEDS: ACIDOPHILUS/BULGARICUS 1 EACH TAB.CHEW PO SCH (08:17)
[2019-06-23] MEDS: CLOPIDOGREL BISULFATE 75 MG TABLET PO SCH (08:17)
[2019-06-23] MEDS: ASCORBIC ACID 500 MG TABLET PO SCH (08:17)
[2019-06-23] MEDS: CHOLECALCIFEROL 1,000 UNIT TABLET (VIT D3) PO SCH (08:17)
[2019-06-23] MEDS: GABAPENTIN 300 MG CAPSULE PO SCH ×2 (08:17→17:10)
[2019-06-23] MEDS: PSYLLIUM SEED 1 PKT PACKET PO SCH (08:18)
[2019-06-23] MEDS: CARVEDILOL 3.125 MG TABLET PO SCH ×2 (08:18→17:10)
[2019-06-23] MEDS: Fluticasone/Umeclidin/Vilanter (Trelegy Ellipta 100-62.5) INH SCH ×2 (08:18→17:09)
[2019-06-23] MEDS: ENOXAPARIN SODIUM 30 MG/0.3 ML DISP.SYRIN SQ SCH (08:20)
[2019-06-23 08:50] VITALS: BP 152/77
[2019-06-23] MEDS ORDERED: CEFTRIAXONE 1 G VIAL IM SCH (09:30)
--- NOTE | 2019-06-23 09:46 | NUR ---
RN NOTES PT HAD SWALLOW EVALUATION THIS MORNING WITH RECOMMENDATION BY ST TO DO SWALLOW VIDEO. DR JAMES MADE AWARE AND IN AGREEMENT. WILL CONTINUE TO MONITOR.
--- NOTE | 2019-06-23 10:35 | NUR ---
RN NOTES PT TRANSPORTED TO CT ROOM VIA WHEELCHAIR FOR CT OF CHEST W/O CONTRAST.
--- NOTE | 2019-06-23 11:02 | NUR ---
RN NOTES PT RETURNED FROM CT OF CHEST W/O CONTRAST FEW MINUTES AGO AND NOW BEING TRANSPORTED DOWN VIA WHEELCHAIR FOR VIDEO SWALLOW.
[2019-06-23] MEDS: CEFTRIAXONE 1 G in IV D5W 50 ML IV SCH (11:44)
--- NOTE | 2019-06-23 13:27 | NUR ---
RN NOTES RECEIVED CALL FROM JESS KNIGHT AND APPARENTLY HE COULDN'T REACH DR HAQUE TO DISCUSS PT'S CT CHEST RESULTS. HE SAID THAT IF DR HAQUE WANTS TO DISCUSS THE RESULTS, HE CAN CONTACT HIM AT TEL # [phone]. I CONTACTED DR HAQUE AND LEFT MESSAGE.
[2019-06-23] MEDS ORDERED: BARIUM SULFATE 240 ML ORAL.SUSP PO ONE (16:59)
[2019-06-23] MEDS ORDERED: BARIUM SULFATE 148 GM SUSP.RECON PO ONE (16:59)
[2019-06-23] MEDS: SIMVASTATIN 20 MG TABLET PO SCH (17:10)
--- NOTE | 2019-06-23 18:23 | NUR ---
RN NOTES PT C/O FEELING NAUSEOUS AFTER EATING HIS DINNER. PRN ZOFRAN 4MG/2ML ADMINISTERED VIA IVP AT 1820. WILL CONTINUE TO MONITOR AND REASSESS PT.
--- NOTE | 2019-06-23 18:45 | NUR ---
MS RN CLOSING NOTES PATIENT IN BED AWAKE AND RESTING AT MODERATE HIGH BACKREST POSITION. AT BEDSIDE. A/O X4. ABLE TO MAKE NEEDS KNOWN. ON O2 VIA N/C @ 2 LPM, TOLERATING WELL WITH NO SOB NOTED. IV SL ON RIGHT HAND #20G INTACT AND PATENT, NO REDNESS, NO S/S OF INFILTRATIONS NOTED. ALL NEEDS AND CARE ATTENDED WELL. SAFETY MEASURES KEPT IN PLACE. HOB KEPT ELEVATED TO PREVENT ASPIRATION. BED IN LOW LOCKED POSITION WITH SR UP X2. CALL LIGHT AND BEDSIDE TABLE WITHIN EASY REACH OF PT. WILL ENDORSE TO CORRECTIONAL SUPERVISOR NURSE FOR DIANNA
--- NOTE | 2019-06-23 19:40 | NUR ---
MS RN OPENING NOTES: RECEIVED PATIENT RESTING IN BED COMFORTABLY WITH AT THE BEDSIDE. PATIENT SHOWS NO S/S OF SOB AND NO ACUTE SIGNS OF DISTRESS. A/O X4. CHINESE SPEAKING. VERBALLY RESPONSIVE. ABLE TO MAKE NEEDS KNOWN. NO COMPLAINS OF PAIN OR ANY DISCOMFORTS AT THIS TIME. ON O2 VIA N/C @ 2 LPM, WITH HOB ELEVATED. TOLERATING WELL. IV ACCESS ON SL LOCATED ON THE RIGHT HAND #20G PATENT AND INTACT, NO REDNESS, NO S/S OF INFILTRATIONS NOTED. SAFETY MEASURES ARE KEPT IN PLACE. BED IS IN LOW AND LOCKED POSITION WITH SIDE RAILS UP X2. CALL LIGHT WITHIN REACH AND. WILL CONTINUE TO MONITOR ACCORDINGLY.
[2019-06-23 20:00] VITALS: BP 96/48
[2019-06-23 20:10] VITALS: BP 96/48
[2019-06-23] MEDS: DONEPEZIL 5 MG TABLET PO SCH (21:24)
[2019-06-23] MEDS: FAMOTIDINE (20 MG) 20 MG TABLET PO SCH (21:24)
[2019-06-23] MEDS: DULOXETINE HCL 20 MG CAPSULE.DR PO SCH (21:24)
[2019-06-23] MEDS: ASPIRIN 81 MG TAB.CHEW PO SCH (21:24)
--- NOTE | 2019-06-24 06:18 | NUR ---
MS RN CLOSING NOTES: PATIENT IS IN BED ASLEEP AND STABLE. NO SOB NOTED, NO S/S OF ACUTE DISTRESS. A/O X4. VERBALLY RESPONSIVE AND ABLE TO MAKE NEEDS KNOWN. ON O2 VIA N/C @ 2 LPM, IV ACCESS SL ON RIGHT HAND #20G INTACT AND PATENT, NO REDNESS, NO S/S OF INFILTRATIONS NOTED. ALL MEDICATIONS GIVEN ORDERED, TOLERATED WELL. ALL NURSING NEEDS MET AND PROVIDED. HOB KEPT ELEVATED TO PREVENT ASPIRATION. SAFETY MEASURES KEPT IN PLACE. BED IS IN LOW, LOCKED POSITION WITH SIDERAILS UP X2. CALL LIGHT AND BEDSIDE TABLE WITHIN EASY REACH. WILL ENDORSE TO DAY SHIFT NURSE FOR DIANNA
[2019-06-24 06:34] LABS: BASOPHILS % (AUTO) 0.3 % (0.0-2.0); EOSINOPHILS % (AUTO) 3.2 % (0.0-6.0); HEMATOCRIT 28 % (39-51); HEMOGLOBIN 9.5 g/dL (13.5-17.5); LYMPHOCYTES # (AUTO) 0.6 /CMM (0.8-4.8); MEAN CORPUSCULAR HGB CONC 34 g/dl (31.0-36.0); MEAN CORPUSCULAR VOLUME 85 fL (80-96); MONOCYTES # (AUTO) 0.8 /CMM (0.1-1.30); MONOCYTES % (AUTO) 9.4 % (2.0-12.0); NEUTROPHILS # (AUTO) 6.3 /CMM (1.8-8.9); NEUTROPHILS % (AUTO) 79.1 % (43.0-81.0); PLATELET COUNT (AUTO) 199 /CMM (150-450); RED BLOOD CELL COUNT(AUTO) 3.26 MIL/uL (4.5-6.0)
--- NOTE | 2019-06-24 07:08 | NUR ---
MS RN OPENING NOTES PATIENT RECEIVED IN BED AWAKE, A/O X4. HOB ELEVATED. ABLE TO MAKE NEEDS KNOWN, DENIES PAIN OR ANY DISCOMFORTS AT THIS TIME. ON SUPPLEMENTAL O2 VIA N/C @ 2 LPM, TOLERATING WELL, RESPIRATIONS EVEN AND UNLABORED. IV SL ON RIGHT HAND #20G INTACT AND PATENT, NO PHLEBITIS AND S/S OF INFILTRATIONS NOTED. SAFETY MEASURES IN PLACE. BED IN LOW LOCKED POSITION WITH SR UP X2. CALL LIGHT AND BEDSIDE TABLE WITHIN EASY REACH OF PT. WILL CONTINUE TO MONITOR ACCORDINGLY.
[2019-06-24 07:14] LABS: CALCIUM, SERUM 7.8 mg/dL (8.5-10.1); CARBON DIOXIDE 26 mmol/L (21-32); CHLORIDE 105 mmol/L (98-107); CREATININE 1.6 mg/dL (0.6-1.3); GLUCOSE 103 mg/dL (74-106); MAGNESIUM 1.7 mg/dL (1.8-2.4); POTASSIUM 4.2 mmol/L (3.5-5.1); SODIUM SERUM 139 mmol/L (136-145); UREA NITROGEN, BLOOD 25 mg/dL (7-18)
[2019-06-24] MEDS: LEVOTHYROXINE SODIUM 25 MCG TABLET PO SCH (07:27)
[2019-06-24] MEDS: PANTOPRAZOLE 40 MG TABLET.DR PO SCH (07:27)
[2019-06-24] MEDS: ACIDOPHILUS/BULGARICUS 1 EACH TAB.CHEW PO SCH (08:10)
[2019-06-24] MEDS: ASCORBIC ACID 500 MG TABLET PO SCH (08:10)
[2019-06-24] MEDS: MULTIVITAMINS,THERAGRAN 1 UDTAB TABLET PO SCH (08:10)
[2019-06-24] MEDS: GABAPENTIN 300 MG CAPSULE PO SCH ×2 (08:10→16:30)
[2019-06-24] MEDS: CLOPIDOGREL BISULFATE 75 MG TABLET PO SCH (08:10)
[2019-06-24] MEDS: CARVEDILOL 3.125 MG TABLET PO SCH ×2 (08:11→16:30)
[2019-06-24] MEDS: CHOLECALCIFEROL 1,000 UNIT TABLET (VIT D3) PO SCH (08:11)
[2019-06-24] MEDS: PSYLLIUM SEED 1 PKT PACKET PO SCH (08:12)
[2019-06-24] MEDS: Fluticasone/Umeclidin/Vilanter (Trelegy Ellipta 100-62.5) INH SCH ×2 (08:15→16:30)
[2019-06-24 08:25] VITALS: BP 133/66
[2019-06-24] MEDS: oxyCODONE/APAP (5/325 MG) 1 UDTAB TABLET PO PRN ×2 (09:43→22:47)
--- NOTE | 2019-06-24 09:45 | NUR ---
RN NOTES/ PAIN MANAGEMENT PT C/O ACHING/THROBBING PAIN ON HIS LOWER BACK ANG RIGHT BIG TOE WITH SCALE OF 8/10. PRN PERCOCET 5/325MG PO X 2 TABS GIVEN AT 0943. WILL CONTINUE TO MONITOR AND REASSESS PT.
[2019-06-24] MEDS: CEFTRIAXONE 1 G in IV D5W 50 ML IV SCH (10:19)
[2019-06-24] MEDS ORDERED: Magnesium 1GM/D5W 100ML PREMIX 100 ML IV SCH (12:08)
--- NOTE | 2019-06-24 13:52 | NUR ---
RN NOTES PT NOTED WITH LOW LEVEL MAGNESIUM 1.7 TODAY, ADMINISTERED MAGNESIUM 1G/100ML D5W VIA IVPB. WILL CONTINUE TO MONITOR
--- NOTE | 2019-06-24 15:08 | NUR ---
RN NOTES PATIENT NOTED WITH LEAKING IV SITE ON RIGHT HAND. IV LINE REMOVED AND APPLIED DRY DRESSING. NEW IV ACCESS INSERTED WITHOUT PROBLEM TO RFA G#22, SECURED WELL AND DATED.
[2019-06-24 16:14] VITALS: BP 112/68
[2019-06-24] MEDS: SIMVASTATIN 20 MG TABLET PO SCH (17:29)
--- NOTE | 2019-06-24 18:43 | NUR ---
MS RN CLOSING NOTES PATIENT IN BED AWAKE AND WATCHING TV AT THIS TIME. A/O X4. ABLE TO MAKE NEEDS KNOWN. ON O2 VIA N/C @ 2 LPM, TOLERATING WELL WITH NO SOB NOTED THROUGHOUT THE DAY. IV SL ON RIGHT FA #22G INTACT AND PATENT, NO REDNESS, NO S/S OF INFILTRATIONS NOTED. ALL NEEDS AND CARE ATTENDED WELL. SAFETY MEASURES KEPT IN PLACE. HOB KEPT ELEVATED TO PREVENT ASPIRATION. BED IN LOW LOCKED POSITION WITH SR UP X2. CALL LIGHT AND BEDSIDE TABLE KEPT WITHIN EASY REACH OF PT. WILL ENDORSE TO CERTIFIED MEDICAL RECORDS CODER NURSE FOR DIANNA
--- NOTE | 2019-06-24 19:15 | NUR ---
MS RN OPENING NOTES: RECEIVED PT ON 2LPM VIA NC AND IS TOLERATING WELL. NO SOB NOTED. NO S/S OF DISTRESS. PT NOTED [place]. PT A/OX3. BED ALARM ACTIVATED. BED KEPT IN LOW, LOCKED POSITION, AND SIDE RAILS X 2UP. CALL LIGHT WITHIN REACH. PT HAS IV ON R FOREARM #22G AND IS PATENT AND INTACT. CURRENTLY H/L. WILL CONTINUE TO MONITOR PT.
[2019-06-24 20:00] VITALS: BP 123/64
[2019-06-24] MEDS: DONEPEZIL 5 MG TABLET PO SCH (21:25)
[2019-06-24] MEDS: ASPIRIN 81 MG TAB.CHEW PO SCH (21:25)
[2019-06-24] MEDS: DULOXETINE HCL 20 MG CAPSULE.DR PO SCH (21:25)
[2019-06-24] MEDS: FAMOTIDINE (20 MG) 20 MG TABLET PO SCH (21:25)
--- NOTE | 2019-06-24 22:50 | NUR ---
MS RN NOTES: PT COMPLAINING OF R BIG TOE 9/10 PAIN. PT WAS ADMINISTERED PERCOCET 5 2 TABS. WILL CONTINUE TO MONITOR.
--- NOTE | 2019-06-25 06:40 | NUR ---
MS RN CLOSING NOTES: ALL NEEDS WERE ATTENDED AND ANTICIPATED FOR. PT REMAINS ON 2LPM VIA NC AND IS TOLERATING WELL. NO SOB NOTED. NO S/S OF DISTRESS. PT REMAINS WITH IV ON R HAND #20G AND IS PATENT AND INTACT. CURRENTLY H/L. BED KEPT IN LOW, LOCKED POSITION, AND SIDE RAILS X 2UP, AND CALL LIGHT WITHIN REACH. PAIN MANAGED WITH PERCOCET 2 TABS. WILL ENDORSE TO AM NURSE FOR DIANNA.
[2019-06-25 06:58] LABS: CALCIUM, SERUM 8.3 mg/dL (8.5-10.1); CARBON DIOXIDE 29 mmol/L (21-32); CHLORIDE 104 mmol/L (98-107); CREATININE 1.5 mg/dL (0.6-1.3); GLUCOSE 98 mg/dL (74-106); MAGNESIUM 1.9 mg/dL (1.8-2.4); SODIUM SERUM 138 mmol/L (136-145); UREA NITROGEN, BLOOD 23 mg/dL (7-18)
[2019-06-25 08:00] VITALS: BP 150/82
--- NOTE | 2019-06-25 08:00 | NUR ---
RN NOTES RECEIVED PATIENT IN THE ROOM A/O X3, NO ACUTE RESPIRATORY DISTRESS, BREATHING LABORED, V.S STABLE, ADMINISTERED SCHEDULED MEDICATION. PATIENT SEEN BY HOSPITALIST Dr JAMES AND TREE THINNER Dr ESPITIA. PATIENT POSSIBLE D/C TODAY. PATIENT TURN AND REPOSTION SELF IN THE BED.
[2019-06-25] MEDS ORDERED: AMOX-430 PO (08:19)
[2019-06-25] MEDS: PSYLLIUM SEED 1 PKT PACKET PO SCH (09:29)
[2019-06-25] MEDS: CLOPIDOGREL BISULFATE 75 MG TABLET PO SCH (09:30)
[2019-06-25] MEDS: LEVOTHYROXINE SODIUM 25 MCG TABLET PO SCH (09:30)
[2019-06-25] MEDS: ASCORBIC ACID 500 MG TABLET PO SCH (09:30)
[2019-06-25] MEDS: ACIDOPHILUS/BULGARICUS 1 EACH TAB.CHEW PO SCH (09:30)
[2019-06-25] MEDS: CHOLECALCIFEROL 1,000 UNIT TABLET (VIT D3) PO SCH (09:30)
[2019-06-25] MEDS: PANTOPRAZOLE 40 MG TABLET.DR PO SCH (09:30)
[2019-06-25] MEDS: GABAPENTIN 300 MG CAPSULE PO SCH ×2 (09:31→15:39)
[2019-06-25] MEDS: MULTIVITAMINS,THERAGRAN 1 UDTAB TABLET PO SCH (09:31)
[2019-06-25] MEDS: CARVEDILOL 3.125 MG TABLET PO SCH ×2 (09:31→15:39)
[2019-06-25] MEDS: oxyCODONE/APAP (5/325 MG) 1 UDTAB TABLET PO PRN (09:39)
[2019-06-25] MEDS: Fluticasone/Umeclidin/Vilanter (Trelegy Ellipta 100-62.5) INH SCH ×2 (09:39→15:41)
--- NOTE | 2019-06-25 09:39 | NUR ---
rn notes Administered Percocet 5/325 mg po prn two tabs for generalized pain 8/10 per patient request, v/s taken bp 150/88, p-66, r-18. patient will d/c home or snf today per hospitalist order Dr Hickman. Assist ambulating, waiting for pt evaluation. call light within to reach. safety precaution maintained all the time.
--- NOTE | 2019-06-25 11:32 | NUR ---
RN NOTES PATIENT RESTING IN THE BED , MEDICATION WERE ADMINISTERED FOR PAIN EFFECTIVE. CONTINUED MONITORING.
[2019-06-25] MEDS: CEFTRIAXONE 1 G in IV D5W 50 ML IV SCH (11:53)
[2019-06-25 15:39] VITALS: BP 170/89
[2019-06-25] MEDS: SIMVASTATIN 20 MG TABLET PO SCH (15:40)
--- NOTE | 2019-06-25 15:51 | NUR ---
MEAL PACKER PLANING PATIENT DISCHARGE AT THIS TIME GOING HOME WITH THE HOME HEALTH. PATIENT A/O X3, NO ACUTE RESPIRATORY DISTRESS, V/S TAKEN STABLE, ADMINISTERED SCHEDULED MEDICATION. PATIENT WILL FOLLOW PRIMARY MD, AND HAS APPOINTMENT ON 06/27/19 1315 ON [facility]. MED RECONCILIATION AND DISCHARGE PLANING EXPLAINED TO THE PATIENT AND . PATIENT VERBALIZED UNDERSTANDING. PRESCRIPTION SANDED TO THE PHARMACY ELECTRONICALLY BY Dr JAMES. PATIENT SIGN PAPERWORK. BELONGING WITH THE PATIENT. GIVEN WALKER TO THE PATIENT FOR SAFETY AT HOME. ESCORTED PATIENT TO THE LOBBY FOR SAFETY. PATIENT DATABASES COMPUTER CONSULTANT BY NAME MARCO AND SON PHONE # [phone].
== END 2019-06-25 16:00 | disposition home health service (06) | DRG 177 ==
LOC: ER 17:01 → MED 20:14 → TELE 21:27 → MED 06-20 10:46
PROVIDERS: ADMIT Nurse Practitioner Acute Care; ATTEND Internal Medicine
DX: J69.0 Pneumonitis due to inhalation of food and vomit (principal); N17.0 Acute kidney failure with tubular necrosis; E43 Unspecified severe protein-calorie malnutrition; I13.0 Hypertensive heart and chronic kidney disease with heart failure and stage 1 through stage 4 chronic kidney disease, or unspecified chronic kidney disease; J44.0 Chronic obstructive pulmonary disease with (acute) lower respiratory infection; K21.9 Gastro-esophageal reflux disease without esophagitis; N18.9 Chronic kidney disease, unspecified; A08.4 Viral intestinal infection, unspecified; I25.2 Old myocardial infarction; E83.42 Hypomagnesemia; E86.0 Dehydration; E87.5 Hyperkalemia; I50.9 Heart failure, unspecified; D72.829 Elevated white blood cell count, unspecified; D63.8 Anemia in other chronic diseases classified elsewhere; R73.9 Hyperglycemia, unspecified; E88.09 Other disorders of plasma-protein metabolism, not elsewhere classified; Z87.891 Personal history of nicotine dependence; Z86.73 Personal history of transient ischemic attack (TIA), and cerebral infarction without residual deficits; Z90.49 Acquired absence of other specified parts of digestive tract; Z95.1 Presence of aortocoronary bypass graft; Z90.79 Acquired absence of other genital organ(s); Z85.820 Personal history of malignant melanoma of skin; K22.5 Diverticulum of esophagus, acquired; Z68.23 Body mass index [BMI] 23.0-23.9, adult; Z79.891 Long term (current) use of opiate analgesic; Z95.5 Presence of coronary angioplasty implant and graft; I25.10 Atherosclerotic heart disease of native coronary artery without angina pectoris; G89.29 Other chronic pain; K57.30 Diverticulosis of large intestine without perforation or abscess without bleeding
CPT/HCPCS: 36415; 36600; 71045-TC; 71250-TC; 74230-TC; 80048-TC; 80053-TC; 80061-TC; 80076-TC; 81000-TC; 82803-TC; 83735-TC; 84100-TC; 84443-TC; 85025-TC; 85610-TC; 87081-TC; 92526; 92611-TC; 94799-TC; 97116-TC; 97530-TC; G0378; J0456; J0696; J1650; J1940; J2270; J2405; J3475; J3490; J7030; J7040; J7060

== ENCOUNTER 2019-06-27 13:24 | Outpatient (CLI) | payer MEDICARE ==
[2019-06-27 13:20] VITALS: BP 122/69
[~2019-06-27 13:24] MED LIST changes: +AMOX-430 PO; +ASCO500T9 PO; +ASPI-1169 PO; -BUPR300T52 PO; +CARV3.122 PO; -CARV6.25 PO; +CHOL100044 PO; +FAMO20TA8 PO; +FLUT1BLS6 INH; -FLUT1DIS3 INH; +GABA-534 PO; +LACT1CAP71 PO; +MULT-24 PO; -OMEP40CA PO; -OXYC-128 PO; +OXYC-162 PO; +PANT20TA3 PO; -PRED10TA23 PO; -PRED20TA PO; -PRED5TAB48 PO; +PSYL3.4P6 PO
== END 2019-06-27 23:59 | disposition home or self-care (01) ==
LOC: MSC 13:24
PROVIDERS: ATTEND Internal Medicine
DX: J69.0 Pneumonitis due to inhalation of food and vomit (principal); K22.5 Diverticulum of esophagus, acquired; I25.810 Atherosclerosis of coronary artery bypass graft(s) without angina pectoris; I13.0 Hypertensive heart and chronic kidney disease with heart failure and stage 1 through stage 4 chronic kidney disease, or unspecified chronic kidney disease; N18.9 Chronic kidney disease, unspecified; I50.9 Heart failure, unspecified; Z95.1 Presence of aortocoronary bypass graft; M47.896 Other spondylosis, lumbar region; F11.20 Opioid dependence, uncomplicated; Z79.01 Long term (current) use of anticoagulants; Z79.899 Other long term (current) drug therapy; K21.9 Gastro-esophageal reflux disease without esophagitis; Z90.79 Acquired absence of other genital organ(s)